=== PATIENT | male | born 1940 | race Caucasian/White ===

== ENCOUNTER 2023-06-14 15:15 | Inpatient (IN) ==
--- NOTE | 2023-06-14 15:43 | Emergency Department Note ---
Impression & Plan Non-ST elevation AL (NSTEMI), Chest pain ED Provider Note NAME: JONATHAN RAYA AGE: 82 SEX: M : 1940 ARRIVES VIA: Ambulance INFORMANT: Patient, ED PROVIDER(S): Reji Gutiérrez DO CHIEF COMPLAINT: Chest pain HPI: The patient is an 82-year-old male who presented to the emergency department for an evaluation of chest pain. The patient describes anterior chest pain that he describes as a pressure. It was nonradiating. It was not a ssociate with shortness of breath or nausea. The patient has a history of coronary artery disease. He has had multiple stents in the past but at this time is still refusing to have bypass surgery. The patient's last cardiac catheterization was in 2021. The patient called 911. The chest pain developed while he was shoveling and working in his barn. He states the pain is significantly improved at this time. ROS: See above HPI for pertinent positives & negatives. A total of 10 systems reviewed and were otherwise negative. PAST MEDICAL HISTORY: See Below PAST SURGICAL HISTORY: See Below FAMILY HISTORY: See Below SOCIAL HISTORY: See Below HOME MEDICATIONS: See Below ALLERGIES: See Below VITALS: See Below PHYSICAL EXAMINATION: GENERAL: Patient is awake alert in no acute distress patient is resting comfortably and showing no signs of anxiety EYES: The conjunctivae are clear. The pupils are round and reactive. EARS, NOSE, MOUTH AND THROAT: The nose is without any evidence of any deformity. NECK: The neck is nontender and supple. RESPIRATORY: Normal respiratory effort is noted there is no evidence of wheezing rhonchi or rales CARDIOVASCULAR: Regular rate and rhythm noted there no murmurs rubs or gallops normal S1 normal S2. GASTROINTESTINAL: The abdomen is soft. Abdomen is nontender. MUSCULOSKELETAL/EXTREMITIES: There is no evidence of gross deformity full range of motion is noted in the hips and shoulders. SKIN: There was a shingles rash noted on the right upper chest wall. NEUROLOGIC: Patient is awake alert and oriented x3 MEDICAL DECISION MAKING: The patient is an 82-year-old male who presented to the emergency department for an evaluation of chest discomfort. The patient has a history of coronary artery disease. He was referred for coronary artery bypass grafting but he has been very reluctant to have this procedure done. He started having chest pain today after exerting himself by shoveling. The patient arrived via ambulance. He was treated with aspirin. Upon arrival his symptoms were significantly improved. After an observation time in the emergency department he had no chest discomfort or pressure. I discussed the patient's laboratory and radiographic studies with him. I discussed the limitations of the emergency department work-up for chest pain with him. Ultimately he was found to have elevated troponin after serial troponin measurements. For this reason I discussed his condition with the on- call [facility]ist group. They have agreed to evaluate the patient in the emergency department for further management and disposition. The patient was treated with IV heparin. I also discussed this case with the [facility] manager restaurant. Triage Nursing notes reviewed. Prior medical records reviewed Vital Signs: reviewed and remarkable for no significant abnormalities Differential diagnosis: Cardiac ischemia, aortic dissection, pulmonary embolism, pneumothorax, pneumonia, pericarditis, myocarditis, esophageal rupture, GERD, cholecystitis, pancreatitis, musculoskeletal, as well as other pathologies. ER treatment provided: See below Diagnostics interpreted by me: ECG: EKG was obtained in the emergency department. My interpretation is normal sinus rhythm at 61 bpm. There is no ectopy. There is no acute ST segment abnormalities noted. This was compared to a tracing from January 02, 2023. No changes were noted Cardiac Monitoring: An order was placed for continuous cardiac monitoring. The monitor shows a rate of 60 bpm with sinus rhythm. Laboratory studies: As stated above and show below. Imaging studies: See below. Radiographic imaging was reviewed by myself Consultation(s): I discussed this case with Dr. Fortune who is on for [facility] cardiology. I discussed this case with Dr. Rivera who is on-call for the [facility]ist group ED COURSE: The patient was placed in observation status at 1529. The patient was placed into observation because of chest pain and he was placed in observation for serial troponin measurements. During the time in observation, the patient was frequently reassessed and received serial troponin measurements. On Final reassessment the patient was found to have an elevation in his troponin and the patient will be evaluated by the hospitalist for inpatient management at this time. A total observation time of 2 hours. Procedures: none Critical Care: I have personally spent greater than 45 minutes of critical care time in the direct management of this patient. This includes bedside care, interpretation of diagnostic studies, and testing, discussion with consultants, patient, and family members, and other required patient management activities. This 45 minutes is in excess of all separately billable procedures. 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 Beliefs That Will Affect Care: None Current Living Situation: Spouse Feels Safe at Home: Yes Assistive Devices: None Allergies Allergies Allergy/AdvReac Type Severity Reaction Status Date / Time No Known Allergies Allergy Verified 06/14/23 15:48 Home Meds Home Medications Medication Instructions Recorded Confirmed No Known Home Medications 02/05/22 06/14/23 Results & Data (ED) Vital Signs Vital Signs - 24 hr 06/14/23 15:32 06/14/23 15:32 06/14/23 15:32 Temperature 36.6 C Temperature Source Oral Pulse Rate 64 Pulse Rate [Apical] Respiratory Rate 18 16 Blood Pressure 153/70 H Blood Pressure [Left Arm] Blood Pressure Mean 97 Blood Pressure Mean [Left Arm] Pulse Oximetry 97 97 Oxygen Delivery Method Room Air Room Air Sepsis Recent Fever Within 48 Hours No Sepsis New/Unexplained Change in Mental Status N/A Sepsis Action Taken by Nursing No Action Required 06/14/23 15:32 06/14/23 15:33 06/14/23 17:14 Temperature Temperature Source Pulse Rate 65 Pulse Rate [Apical] 60 Respiratory Rate 16 Blood Pressure Blood Pressure [Left Arm] 140/72 Blood Pressure Mean Blood Pressure Mean [Left Arm] 94 Pulse Oximetry 96 96 Oxygen Delivery Method Room Air Sepsis Recent Fever Within 48 Hours Sepsis New/Unexplained Change in Mental Status Sepsis Action Taken by Nursing 06/14/23 19:30 06/14/23 19:00 Temperature Temperature Source Pulse Rate 60 Pulse Rate [Apical] 63 Respiratory Rate 18 Blood Pressure Blood Pressure [Left Arm] 162/86 H Blood Pressure Mean Blood Pressure Mean [Left Arm] 111 Pulse Oximetry 98 Oxygen Delivery Method Sepsis Recent Fever Within 48 Hours Sepsis New/Unexplained Change in Mental Status Sepsis Action Taken by Care Home Medications Current Medication List: was personally reviewed by me Laboratory Data Attestation: I reviewed the patient's lab results. 06/14/23 15:29 06/14/23 15:29 Lab Results 06/14/23 06/14/23 06/14/23 Range/Units 15: 15: 17:23 WBC 8.44 (4.8-10.8) K/ul RBC 4.86 (4.70-6.10) M/uL Hgb 14.5 (14.0-18.0) g/dl Hct 44.5 (42.0-52.0) % MCV 91.6 (80.0-100.0) fL MCH 29.8 (25.0-34.0) pg MCHC 32.6 (32.0-36.0) g/dL RDW Std Deviation 43.8 (36.4-46.3) fL RDW Coeff of [place] 12.9 (11.5-14.5) % Plt Count 157 (130-400) K/uL MPV 10.4 (9.4-12.4) fL Immature Gran % (Auto) 0.4 % Neut % (Auto) 77.3 % Lymph % (Auto) 13.9 % [place] % (Auto) 7.5 % Eos % (Auto) 0.7 % Baso % (Auto) 0.2 % Neut # (Auto) 6.53 H (1.40-6.50) K/uL Lymph # (Auto) 1.17 L (1.20-3.40) K/uL [place] # (Auto) 0.63 H (0.11-0.59) K/uL Eos # (Auto) 0.06 (0.00-0.50) K/uL Baso # (Auto) 0.02 (0.00-0.20) K/uL Immature Gran # (Auto) 0.03 (0.01-0.20) K/uL Sodium 139 (136-145) mmol/L Potassium 4.2 (3.5-5.1) mmol/L Chloride 105 (98-107) mmol/L Carbon Dioxide 30 (21-32) mmol/L Anion Gap 4 (3-11) BUN 29 H (6-23) mg/dl Creatinine 0.82 (0.6-1.4) mg/dl Est Cr Clr Drug Dosing 69.1 ml/min Est GFR ( Amer) 96.8 ml/min Est GFR (Non-Af Amer) 83.5 ml/min BUN/Creatinine Ratio 35.4 H (10-20) Glucose 121 H (70-99(Fasting)) mg/dl Calcium 9.3 (8.6-10.3) mg/dl Total Bilirubin 0.4 (0.2-1.0) mg/dl AST 23 (13-39) U/L ALT 19 (7-52) U/L Alkaline Phosphatase 66 (34-104) U/L Troponin I High Sens 20.3 H 153.5 H* D (0-20) pg/ml Total Protein 7.4 (6.0-8.3) gm/dl Albumin 4.1 (3.4-5.0) gm/dl Globulin 3.3 (2.5-4.0) gm/dl Albumin/Globulin Ratio 1.2 (0.9-2) Lipase 10 L (11-82) U/L 06/14/ Range/Units 19:07 WBC (4.8-10.8) K/ul RBC (4.70-6.10) M/uL Hgb (14.0-18.0) g/dl Hct (42.0-52.0) % MCV (80.0-100.0) fL MCH (25.0-34.0) pg MCHC (32.0-36.0) g/dL RDW Std Deviation (36.4-46.3) fL RDW Coeff of [place] (11.5-14.5) % Plt Count (130-400) K/uL MPV (9.4-12.4) fL Immature Gran % (Auto) % Neut % (Auto) % Lymph % (Auto) % [place] % (Auto) % Eos % (Auto) % Baso % (Auto) % Neut # (Auto) (1.40-6.50) K/uL Lymph # (Auto) (1.20-3.40) K/uL [place] # (Auto) (0.11-0.59) K/uL Eos # (Auto) (0.00-0.50) K/uL Baso # (Auto) (0.00-0.20) K/uL Immature Gran # (Auto) (0.01-0.20) K/uL Sodium (136-145) mmol/L Potassium (3.5-5.1) mmol/L Chloride (98-107) mmol/L Carbon Dioxide (21-32) mmol/L Anion Gap (3-11) BUN (6-23) mg/dl Creatinine (0.6-1.4) mg/dl Est Cr Clr Drug Dosing ml/min Est GFR ( Amer) ml/min Est GFR (Non-Af Amer) ml/min BUN/Creatinine Ratio (10-20) Glucose (70-99(Fasting)) mg/dl Calcium (8.6-10.3) mg/dl Total Bilirubin (0.2-1.0) mg/dl AST (13-39) U/L ALT (7-52) U/L Alkaline Phosphatase (34-104) U/L Troponin I High Sens 506.7 H* D (0-20) pg/ml Total Protein (6.0-8.3) gm/dl Albumin (3.4-5.0) gm/dl Globulin (2.5-4.0) gm/dl Albumin/Globulin Ratio (0.9-2) Lipase (11-82) U/L Administered Medications Heparin Sodium/Dextrose (Heparin Sodium/Dextrose) 25,000 units in 500 mls @ 24 mls/hr IV .[id number] [facility]; Protocol Stop: 07/14/23 18:44 Last Admin: 06/14/23 18:32 Dose: 1,200 units/hr, 24 mls/hr Documented By: JI Co-signed By: BMK Discontinued Medications Heparin Sodium/Dextrose (Heparin Iv Adult Wt-Based Standard *No* Bolus Protocol) 1 each IV ONE STA; Protocol Stop: 06/14/23 18:21 Last Admin: 06/14/23 18:48 Dose: Not Given Documented By: JI Imaging Data Attestation: I personally reviewed and interpreted this imaging study as follows: My Impression: 1 view chest x-ray was obtained in the emergency department. My interpretation was no free air or definite infiltrate, final report below. Radiologist's Impression: Chest X-Ray 06/14/23 15:28 XR chest 1V portable HISTORY: 82 years-old Male Chest pain, nonspecific acute chest pain COMPARISON: 01/02/2023 TECHNIQUE: AP view of the chest FINDINGS: Cardiomediastinal and hilar silhouettes are within normal limits. No pneumothorax, pleural effusion or airspace consolidation. Bones appear grossly intact. Chronic left clavicular fracture deformity. IMPRESSION: No acute process. ACT 112: Negative or not required by law. The above report was generated using voice recognition software. It may contain grammatical, syntax or spelling errors. Electronically signed by: Per Causey M.D. 06/14/2023 3:55 PM Discharge Plan Visit Data Chief Complaint: Chest Pain Stated Complaint: CHEST PAIN ED Provider: Reji Gutiérrez Discharge Problem: Non-ST elevation AL (NSTEMI), Chest pain Patient Disposition: Being Evaluated by Hospitalist Forms Stand Alone Forms: My [email or web address] Prescriptions Prescriptions: No Action No Known Home Medications Referrals Referrals: Ayaka Bartlett CRNP [Primary Care Provider] -
--- NOTE | 2023-06-14 15:56 | XRay Report ---
XR chest 1V portable HISTORY: 82 years-old Male Chest pain, nonspecific acute chest pain COMPARISON: 01/02/2023 TECHNIQUE: AP view of the chest FINDINGS: Cardiomediastinal and hilar silhouettes are within normal limits. No pneumothorax, pleural effusion o r airspace consolidation. Bones appear grossly intact. Chronic left clavicular fracture deformity. IMPRESSION: No acute process. ACT 112: Negative or not required by law. The above report was generated using voice recognition software. It may contain grammatical, syntax o r spelling errors. Electronically signed by: Per Causey M.D. 06/14/2023 3:55 PM
[2023-06-14 16:05] LABS: Basophils # (auto) 0.02 K/uL (0.00-0.20); Basophils % (auto) 0.2 %; Eosinophils # (auto) 0.06 K/uL (0.00-0.50); Eosinophils % (auto) 0.7 %; Hematocrit (blood only) 44.5 % (42.0-52.0); Hemoglobin 14.5 g/dl (14.0-18.0); Immature Granulocytes # (auto) 0.03 K/uL (0.01-0.20); Immature Granulocytes % (auto) 0.4 %; Lymphocytes # (auto) 1.17 K/uL (1.20-3.40); Lymphocytes % (auto) 13.9 %; Mean Corpuscular Hemoglobin 29.8 pg (25.0-34.0); Mean Corpuscular Hgb Conc 32.6 g/dL (32.0-36.0); Mean Corpuscular Volume 91.6 fL (80.0-100.0); Mean Platelet Volume 10.4 fL (9.4-12.4); Monocytes # (auto) 0.63 K/uL (0.11-0.59); Monocytes % (auto) 7.5 %; Neutrophils # (auto) 6.53 K/uL (1.40-6.50); Neutrophils % (auto) 77.3 %; Platelet Count 157 K/uL (130-400); RDW Coefficient of Variation 12.9 % (11.5-14.5); RDW Standard Deviation 43.8 fL (36.4-46.3); Red Blood Count 4.86 M/uL (4.70-6.10); White Blood Count 8.44 K/ul (4.8-10.8)
[2023-06-14 16:11] LABS: Albumin Globulin Ratio 1.2 (0.9-2); Albumin Level 4.1 gm/dl (3.4-5.0); BUN Creatinine Ratio 35.4 (10-20); Bilirubin,Total 0.4 mg/dl (0.2-1.0); Calcium 9.3 mg/dl (8.6-10.3); Creatinine Clr Calc Pharmacy 69.1 ml/min; Est GFR (African American) 96.8 ml/min; Est GFR (Non-African American) 83.5 ml/min; Globulin 3.3 gm/dl (2.5-4.0); Potassium 4.2 mmol/L (3.5-5.1); Total Protein 7.4 gm/dl (6.0-8.3)
[2023-06-14 16:17] LABS: Troponin I High Sensitivity 20.3 pg/ml (0-20)
[2023-06-14] MEDS ORDERED: Heparin IV Adult Wt-Based Standard *NO* Bolus Protocol IV STA (18:20)
--- NOTE | 2023-06-14 18:31 | History & Physical Report ---
Date of Service June 14, 2023 Assessment & Plan (1) Chest pain: Plan: Acute onset severe CP while shoveling in his barn on 06/14 Hx of CAD w/ stent placement In the past, patient declined CABG / heart surgery This was discussed with the patient in the ED, and patient was encouraged to consider options Also encouraged to consider prescription medications, as patient is not currently taking anything Troponin positive 20.3 --> 153.5 Trend troponin q6h x 3 Heparin bolus given in the ED Echo ordered for tomorrow morning Appreciate cardiology consult Continuous telemetry monitoring Nitro 0.4 SL as needed for chest pain (max 3 doses over 15min) If CP recurs, consider Nitro-Bid 2% q6h AM CBC, BMP (2) Hypertension: Plan: BP 153/70 on arrival Patient is not on any hypertensive medications at home (3) Coronary artery disease: Plan: IMI RCA TJ, staged LCx TJ, April [address] Schmid in January 2022 (4) Shingles: Plan: First noticed by patient 2 weeks ago Patient has tried some natural remedies Clinically, shingles are beginning to crust over; will hold intervention at this time Maintain standard contact precautions Plan Disposition: Admit to PCU telemetry DNR/DNI AHA Diet VTE PPx: Heparin History of Present Illness Chief Complaint: Chest pain Primary Care Provider: DANAY Chavez Scott is an 89-year-old [facility] gentleman with PMH of HTN, aortic stenosis, HLD, and CAD. He presented for 8/10 chest pain that developed while shoveling in his barn this morning 06/14. Hx of cardiac cath and stent placement. He reports the present episode felt more intense than past episodes. In the past, patient has declined CABG/surgical intervention. Dr. Singer discussed this with the patient and encouraged him to consider his different treatment options, whether that be medical, surgical, or choosing to abstain. The patient has not taken prescription medications over the past 2 years. Was previously following with Dr. Bello after stent placement. He has not been taking aspirin, plavix, metoprolol, antihypertensives, or cholesterol medications. Patient denies chest pain while in the ED. Patient further denies chest pain at rest in the last 6 months, but endorses "chest pressure on exertion" while walking up hills. He is also had shingles x2 weeks along the right lateral rib cage, underneath the right breast, and along the right mid-back. Patient's recently past away in March. Vitals stable on admission. ED Course: ASA, heparin ROS: Patient endorses intermittent chest pain that comes on with exertion Patient denies fever, chills, CP (at present), SOB, abdominal pain, or numbness/tingling/pain down the legs. Allergies Allergy/AdvReac Type Severity Reaction Status Date / Time No Known Allergies Allergy Verified 06/14/23 15:48 Home Medications Medication Instructions Recorded Confirmed Type No Known Home Medications 02/05/22 06/14/23 History Past Med/Surg History Medical History Past myocardial infarction Surgical History History of intravascular stent placement History of mandibular surgery History of tonsillectomy Family History Sister Breast cancer Cancer Mother Diabetes Denies family history of Ovarian cancer Prostate cancer Myocardial infarction Colorectal cancer Social History Smoking Status: Never smoker Hx Alcohol Use: No Hx Substance Use: No Preferred Language: Lithuanian Communication Ability: Effective Aws Developer Required: No Beliefs That Will Affect Care: None Current Living Situation: Spouse Feels Safe at Home: Yes Assistive Devices: None Review of Systems Review of Systems: See HPI above. Physical Exam Physical Exam: General: patient appears in no acute distress; appears stated age; well- nourished; cooperative HEENT: normocephalic, atraumatic; no scleral icterus; PERRLA w/ EOMs intact; moist mucus membrane; trachea midline; vision and hearing grossly intact Skin: warm, dry without signs of tenting; no cyanosis; red/brown crusting lesions that follow dermatome along the right upper back, and right lower breast Cardiac: Regular rhythm; 2/6 systolic murmur auscultated at the second [facility] MCL Pulm: no acute respiratory distress; symmetrical chest expansion; clear breath sounds across all lung mariscal without adventitious sounds Abdominal: Soft, nontender to palpation; BS present; no ascites; inguinal hernia MSK: no tics or fasciculations; no edema noted in the LEs b/l; pulses intact and symmetrical at radial, DP, and PT Neuro: A&Ox3; no tremors; no focal defects Results & Data Results & Data Vital Signs (Past 12 Hours) Vital Signs Temp Pulse Pulse Resp BP BP Pulse Ox 06/14/23 17:14 60 16 140/72 96 06/14/23 15:33 65 06/14/23 15:32 96 06/14/23 15:32 16 97 06/14/23 15:32 06/14/23 15:32 36.6 C 64 18 153/70 H 97 O2 Del Method 06/14/23 17:14 Room Air 06/14/23 15:33 06/14/23 15:32 06/14/23 15:32 06/14/23 15:32 Room Air 06/14/23 15:32 Room Air Laboratory Results Abnormal lab results 06/14/23 06/14/23 06/14/23 Range/Units 15:29 15:29 17:23 Neut # (Auto) 6.53 H (1.40-6.50) K/uL Lymph # (Auto) 1.17 L (1.20-3.40) K/uL [place] # (Auto) 0.63 H (0.11-0.59) K/uL BUN 29 H (6-23) mg/dl BUN/Creatinine Ratio 35.4 H (10-20) Glucose 121 H (70-99(Fasting)) mg/dl Troponin I High Sens 20.3 H 153.5 H* D (0-20) pg/ml Lipase 10 L (11-82) U/L Diagnostic Findings Chest X-Ray 06/14/23 15:28 XR chest 1V portable HISTORY: 82 years-old Male Chest pain, nonspecific acute chest pain COMPARISON: 01/02/2023 TECHNIQUE: AP view of the chest FINDINGS: Cardiomediastinal and hilar silhouettes are within normal limits. No pneumothorax, pleural effusion or airspace consolidation. Bones appear grossly intact. Chronic left clavicular fracture deformity. IMPRESSION: No acute process. ACT 112: Negative or not required by law. The above report was generated using voice recognition software. It may contain grammatical, syntax or spelling errors. Electronically signed by: Per Causey M.D. 06/14/2023 3:55 PM Code Status & VTE Plan Code Status DNR/DNI VTE Prophylaxis Plan VTE Prophylaxis will be ordered: Yes Supervising Physician Co-Signing Physician Notes Scott Valiente is an 82-year-old male michelle flores with a past medical history of aortic stenosis, hypertension, hyperlipidemia, CAD w/ hx of PCI, who presents with exertional ches tpain. Follows with [facility] for coronary artery disease. He has a history of PCI to the RCA, LCx. Patient was seen 03/2023 by cardiology and was noted to have exertional angina and had a nondiagnostic stress echo. He underwent a cardiac catheterization 01/2022 and has 60 to 70% LM, 80% right PLB, 90% left PLB, 60% mid RCA disease and patent stents. Patient was recommended for CABG, however opted for medical management and declined this. Last EF 55-60%. He reports today for evaluation of chest pain. Chest pain developed while he was shoveling in his barn, rapid development of substernal chest pain. improved on rest while in the ER. Troponin up trended from 20 --> 153, EKG shows normal sinus rhythm without acute territorial ST segment changes. QTc 434 PG Care Time/CCT Total # of Minutes Spent Total Time Spent with Patient: Total time spent is greater than 50% in coordination of care (as documented) at patient's floor/unit and/or counseling patient: Coding [place] [address] INT INP/OBS CARE 2/55MIN Patient Type Established History Comprehensive Exam Comprehensive Medical Decision Making Moderate Complexity Diagnoses Chest pain R07.9 Hypertension I10 Coronary artery disease I25.10 Shingles B02.9
[2023-06-14] MEDS: HEPARIN SODIUM/DEXTROSE 25,000 UNITS/500 ML BAG IV SCH (18:32)
[2023-06-14] MEDS ORDERED: ACETAMINOPHEN 325 MG TAB PO PRN (21:58)
[2023-06-14] MEDS ORDERED: NITROGLYCERIN SL 0.4 MG/TAB TAB SL PRN (21:58)
[2023-06-14] MEDS: METOPROLOL TARTRATE 25 MG TAB PO SCH (22:41)
[2023-06-15 01:05] LABS: Partial Thromboplastin Ratio 2.1
[2023-06-15 06:37] LABS: Basophils # (auto) 0.02 K/uL (0.00-0.20); Basophils % (auto) 0.4 %; Eosinophils # (auto) 0.12 K/uL (0.00-0.50); Eosinophils % (auto) 2.4 %; Hemoglobin 13.6 g/dl (14.0-18.0); Immature Granulocytes # (auto) 0.01 K/uL (0.01-0.20); Immature Granulocytes % (auto) 0.2 %; Lymphocytes # (auto) 2.01 K/uL (1.20-3.40); Mean Corpuscular Hemoglobin 29.6 pg (25.0-34.0); Mean Corpuscular Hgb Conc 33.2 g/dL (32.0-36.0); Mean Corpuscular Volume 89.3 fL (80.0-100.0); Mean Platelet Volume 10.4 fL (9.4-12.4); Monocytes # (auto) 0.55 K/uL (0.11-0.59); Neutrophils # (auto) 2.31 K/uL (1.40-6.50); Platelet Count 145 K/uL (130-400); RDW Coefficient of Variation 12.9 % (11.5-14.5); RDW Standard Deviation 42.1 fL (36.4-46.3); Red Blood Count 4.59 M/uL (4.70-6.10); White Blood Count 5.02 K/ul (4.8-10.8)
--- NOTE | 2023-06-15 07:01 | Electrocardiogram Report ---
Test Reason : Blood Pressure : / mmHG Vent. Rate : 061 BPM Atrial Rate : 061 BPM P-R Int : 148 ms QRS Dur : 092 ms QT Int : 432 ms P-R-T Axes : 075 026 019 degrees QTc Int : 434 ms Normal sinus rhythm Possible Left atrial enlargement Inferior infarct (cited on or before 02-JAN-2023) Abnormal ECG When compared with ECG of 02-JAN-2023 18:20, No significant change was found Confirmed by Jarett Fortune ([id number]) on 06/15/2023 7:00:40 AM Referred By: REFERRED SELF Confirmed By:Carson Fortune
[2023-06-15 07:04] LABS: BUN Creatinine Ratio 33.3 (10-20); Calcium 8.5 mg/dl (8.6-10.3); Chol HDL Ratio 5.1 (0-5); Creatinine Clr Calc Pharmacy 74.5 ml/min; Est GFR (African American) 102.1 ml/min; Est GFR (Non-African American) 88.1 ml/min; Potassium 4.1 mmol/L (3.5-5.1)
[2023-06-15 07:21] LABS: Troponin I High Sensitivity 373.1 pg/ml (0-20)
[2023-06-15 08:03] LABS: Partial Thromboplastin Ratio 2.9
--- NOTE | 2023-06-15 08:05 | XCELERA ---
[id number]
[2023-06-15 08:07] LABS: Partial Thromboplastin Time 82.7 Seconds (21.0-31.0)
--- NOTE | 2023-06-15 08:13 | Hospitalist Progress Note ---
Date of Service June 15, 2023 Assessment & Plan (1) Chest pain: (2) Hypertension: (3) Coronary artery disease: (4) Shingles: Plan NSTEMI Acute onset severe CP while shoveling in his barn on 06/14 Hx of CAD w/ 2 stent placement (left main) In the past, patient declined CABG / heart surgery Troponin positive: 153.5 -->506.7-->731.5-->373.1-->244.9 Echo ordered: EF 50-55%, Aortic valve sclerosis mild, Mild concentric left ventricular hypertrophy Nitro 0.4 SL as needed for chest pain (max 3 doses over 15min) Appreciated cardiology consult: Recommended repeat coronary angiography and Percutaneous intervention Patient prefer medical intervention for now Plavix, Heparin for 48 hrs, PTT ordered Carvedilol 3.125 mg BID Lipitor 40 mg Hypertension: BP 153/70 on arrival Patient is not on any hypertensive medications at home -Low dose beta blockers. Monitor bradycardia Coronary artery disease: Sever left main coronary disease Cardiology recommended surgical revascularization, not interested Medical therapy for now Shingles: First noticed by patient 2 weeks ago Patient has tried some natural remedies Clinically, shingles are beginning to crust over; will hold intervention at this time Maintain standard contact precautions Plan Disposition: Admit to PCU telemetry DNR/DNI AHA Diet VTE PPx: Heparin Admission and Anticipated Discharge Date Admission Date: June 14, 2023 Supervising Physician Co-Signing Physician Notes I personally examined the patient and verified all guaman points of history and exam, discussed case, and agree with decision making with Dr Silverio Martinez no chest pain feels good now. EXTENSIVE discussion with pt and family on CAD, risk/benefit of interventional/surgical approach vs not, risk/benefit in a separate phase of discussion on med management, discussed nutriceuticals, discussed diet/exercise vitals ntoed nad heent nc at mmm breathing unlabored no accessory muscles good effort skin no rashes no pallor or icterus CAD/NSTEMI - med management. for now as far as ongoing management he's amenable to appropriate med management, considering but leaning against any surgical intervention, amenable to lifestyle modification as well hopefully home tomorrow, otherwise as above Subjective 89 y/o old with PMH of HTN, aortic stenosis, HLD, and CAD.He presented for 8/10 chest pain that developed while performing some work on in his barn this morning 06/14. Hx of cardiac cath and stent placement. He reports the present episode felt more intense than past episodes. In the past, patient has declined CABG/surgical intervention.The patient has not taken prescription medications over the past 2 years. Was previously following with Dr. Bello after stent placement. He has not been taking aspirin, plavix, metoprolol, antihypertensives, or cholesterol medications. 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 Evaluated today found alert in NAD, denied any chest pain at the moment. Feeling better. Denied any palpitations, dizziness, lightheadedness, no orthopnea. He complain of discomfort/pain on his chest and back on right sided that he attributed to his recent infection with shingles Review of Systems Review of Systems: All systems reviewed & are unremarkable except as noted in HPI & below Physical Exam Constitutional: WD/WN, vitals as above Respiratory: normal respiratory effort, lungs clear to auscultation Cardiovascular: RRR, no murmur, no edema Gastrointestinal (Abdomen): normal bowel sounds, soft, nontender, no hepatosplenomegaly Skin: warm, dry without signs of tenting; no cyanosis; red/brown crusting lesions that follow dermatome along the right upper back, and right lower breast Psychiatric: A+Ox3, euthymic affect Results & Data Results & Data Vital Signs (Past 12 Hours) Vital Signs Temp Pulse Pulse Resp BP Pulse Ox Pulse Ox 06/15/23 07:31 36.5 C 54 L 19 152/78 H 96 06/15/23 05:37 54 L 18 160/84 H 97 06/15/23 03:04 36.7 C 59 L 20 151/78 H 98 06/14/23 21:58 96 06/14/23 21:58 60 06/14/23 21:37 56 L 06/14/23 23:00 55 L 17 169/89 H 96 06/14/23 21:38 36.4 C L 58 L 18 152/80 H 95 06/14/23 21:00 60 16 160/79 H 96 O2 Del Method O2 Del Method 06/15/23 07:31 Room Air 06/15/23 05:37 Room Air 06/15/23 03:04 Room Air 06/14/23 21:58 Room Air 06/14/23 21:58 06/14/23 21:37 06/14/23 23:00 Room Air 06/14/23 21:38 Room Air 06/14/23 21:00 Room Air
[2023-06-15] MEDS: ATORVASTATIN 40 MG TAB PO SCH (09:20)
[2023-06-15] MEDS: ASPIRIN 81 MG ECTAB PO SCH (09:20)
[2023-06-15] MEDS: METOPROLOL TARTRATE 25 MG TAB PO SCH (09:20)
--- NOTE | 2023-06-15 09:53 | Cardiology Consultation ---
Date of Consultation June 15, 2023 Assessment & Plan (1) Non-ST elevation CA (NSTEMI): (2) Coronary artery disease: (3) Valvular heart disease: Plan 1. NSTEMI: He had elevation in his biomarkers associated with significant activity yesterday. Unclear if this represents an acute coronary syndrome or simply demand ischemia in the setting of known severe left main disease. However, we will treat as an ACS currently. Will continue with heparin infusion for 48 hours, try to administer some beta-blockade in the setting of his bradycardia, consider nitrates with his elevated blood pressure and add Plavix to his anti-platelet regimen. I had an extensive discussion with the patient and his family today regarding his options for treatment. My recommendation was repeat coronary angiography to assess patency of the right coronary system. He is known to have severe left- sided disease and this is not amenable to percutaneous intervention. We talked about the benefits of surgical revascularization and the risks of a noninvasive strategy for treatment of an NSTEMI. At this point he wishes to proceed with medical therapy. Will add the agents noted above. Will ambulate tomorrow. I will reassess his symptoms and readdress my concerns with a noninvasive strategy at that time. 2. Coronary artery disease: Known to have severe left main coronary disease. Patent stents at the time of his last evaluation in 2021. He was advised at that time to consider surgical revascularization but was not interested. He actually stopped taking his oral medications as well and is taking some natural path and remedies at this time. He was amenable to trying medical therapy again. Will reinitiate anti-lipid therapy and control blood pressure as well. 3. Aortic stenosis: Reported to have mild aortic stenosis previously. Current examination did not demonstrate a significant gradient noted the dimensionless index was somewhat reduced. Not think this represents a clinical concern or any role in his symptoms. 4. Hypertension: The patient does have elevated blood pressure. Will try some low-dose beta-blockade. If this is not well tolerated or does not reduce his blood pressure would add a nitrate for its antianginal benefit. History of Present Illness Reason for Consultation: NSTEMI Attending Physician: Ed Allen DO History of Present Illness The patient is an 82-year-old gentleman with a history of coronary artery disease who had previously undergone percutaneous intervention to the right coronary artery in the setting of an inferior wall myocardial infarction in 2018. More recent evaluation reported significant left main disease and patent right coronary stents. The patient was performing some work in his barn yesterday. Specifically this involve cleaning some horse Stalls and washing a horse. He experienced the onset chest discomfort similar to that that he has experienced previously. This episode was more intense than usual and did not resolve immediately with rest. An ambulance was summoned. He was given aspirin in route and brought to the emergency room where his symptoms had essentially resolved. Cardiac biomarkers were abnormal and he was started on heparin infusion. He was admitted for observation. The patient states that he does have some tightness in the chest when he does certain types of exertion. Reportedly this is fairly rare. He has an element of dyspnea with extremes of activity as well. With routine activity he generally does not have symptoms of this nature. Denies dizziness or lightheadedness. He did suffer a mechanical fall in the past resulting in a minor concussion. No history of syncope. No sense of palpitation. No lower extremity edema. No orthopnea or paroxysmal nocturnal dyspnea. At the time of my interview the patient was feeling well. He has not had recurrence of yesterday's chest pain but does have some discomfort along the right chest and back. He attributes this to recent infection with shingles. Allergies Allergy/AdvReac Type Severity Reaction Status Date / Time No Known Allergies Allergy Verified 06/14/23 15:48 Home Medications Medication Instructions Recorded Confirmed Type No Known Home Medications 02/05/22 06/14/23 History Patient History Medical History Past myocardial infarction Surgical History History of intravascular stent placement History of mandibular surgery History of tonsillectomy Family History Sister Breast cancer Cancer Mother Diabetes Denies family history of Ovarian cancer Prostate cancer Myocardial infarction Colorectal cancer Social History Smoking Status: Never smoker Second Hand Exposure: No; Do You Dip or Chew Tobacco: No; Tobacco Cessation Education Requested by Patient: No Hx Alcohol Use: No Hx Substance Use: No Preferred Language: Liberian Communication Ability: Effective Caterer'S Aide Required: No Beliefs That Will Affect Care: None Current Living Situation: Alone Current Living Situation Comment: pts recently passed Other Information That Helps Us Care for You: No Feels Safe at Home: Yes Safety Concerns: Feels Safe At This Time Assistive Devices: None Review of Systems Review of Systems: Per HPI. Recent shingles infection involving his back, right-sided. Physical Exam Physical Exam: The patient is alert and oriented. Mood and affect appeared normal. He answered all questions appropriately. HEENT: Pupils are equal and reactive to light and accommodation. Extraocular movements are intact. The sclerae are anicteric. Neuro: Cranial nerves intact Lungs: Clear to auscultation bilaterally. He has good air movement without use of accessory muscles. No rales wheezes or rhonchi. Cardiac: Heart demonstrates a regular rate and rhythm. Normal S1 and S2. No murmurs on examination. Pulses: The patient has palpable radial pulses bilaterally that are equal in intensity Extremities: There was no evidence of hypoperfusion. There is no cyanosis or clubbing. There is no edema. . Results & Data Vital Signs (Past 12 Hours) Vital Signs Temp Pulse Pulse Resp BP Pulse Ox Pulse Ox 06/15/23 09:10 62 06/15/23 07:31 36.5 C 54 L 19 152/78 H 96 06/15/23 05:37 54 L 18 160/84 H 97 06/15/23 03:04 36.7 C 59 L 20 151/78 H 98 06/14/23 21:58 96 06/14/23 21:58 60 06/14/23 23:00 55 L 17 169/89 H 96 O2 Del Method O2 Del Method 06/15/23 09:10 06/15/23 07:31 Room Air 06/15/23 05:37 Room Air 06/15/23 03:04 Room Air 06/14/23 21:58 Room Air 06/14/23 21:58 06/14/23 23:00 Room Air Laboratory Results Abnormal Lab Results 06/14/23 06/14/23 06/14/23 15:29 15:29 17:23 WBC 8.44 RBC 4.86 Hgb 14.5 Hct 44.5 MCV 91.6 MCH 29.8 MCHC 32.6 RDW Std Deviation 43.8 RDW Coeff of [place] 12.9 Plt Count 157 MPV 10.4 Immature Gran % (Auto) 0.4 Neut % (Auto) 77.3 Lymph % (Auto) 13.9 [place] % (Auto) 7.5 Eos % (Auto) 0.7 Baso % (Auto) 0.2 Neut # (Auto) 6.53 H Lymph # (Auto) 1.[address] [place] # (Auto) 0.63 H Eos # (Auto) 0.06 Baso # (Auto) 0.02 Immature Gran # (Auto) 0.03 APTT PTT Ratio Sodium 139 Potassium 4.2 Chloride 105 Carbon Dioxide 30 Anion Gap 4 BUN 29 H Creatinine 0.82 Est Cr Clr Drug Dosing 69.1 Est GFR ( Amer) 96.8 Est GFR (Non-Af Amer) 83.5 BUN/Creatinine Ratio 35.4 H Glucose 121 H Calcium 9.3 Total Bilirubin 0.4 AST 23 ALT 19 Alkaline Phosphatase 66 Troponin I High Sens 20.3 H 153.5 H* D Total Protein 7.4 Albumin 4.1 Globulin 3.3 Albumin/Globulin Ratio 1.2 Triglycerides Cholesterol LDL Cholesterol, Calc VLDL Cholesterol, Calc HDL Cholesterol Cholesterol/HDL Ratio Lipase 10 L 06/14/23 06/15/23 06/15/23 19:07 00:32 00:32 WBC RBC Hgb Hct MCV MCH MCHC RDW Std Deviation RDW Coeff of [place] Plt Count MPV Immature Gran % (Auto) Neut % (Auto) Lymph % (Auto) [place] % (Auto) Eos % (Auto) Baso % (Auto) Neut # (Auto) Lymph # (Auto) [place] # (Auto) Eos # (Auto) Baso # (Auto) Immature Gran # (Auto) APTT 59.0 H* PTT Ratio 2.1 Sodium Potassium Chloride Carbon Dioxide Anion Gap BUN Creatinine Est Cr Clr Drug Dosing Est GFR ( Amer) Est GFR (Non-Af Amer) BUN/Creatinine Ratio Glucose Calcium Total Bilirubin AST ALT Alkaline Phosphatase Troponin I High Sens 506.7 H* D 731.5 H* D Total Protein Albumin Globulin Albumin/Globulin Ratio Triglycerides Cholesterol LDL Cholesterol, Calc VLDL Cholesterol, Calc HDL Cholesterol Cholesterol/HDL Ratio Lipase 06/15/23 06/15/23 06/15/23 06:16 06:16 06:16 WBC 5.02 RBC 4.59 L Hgb 13.6 L Hct 41.0 L MCV 89.3 MCH 29.6 MCHC 33.2 RDW Std Deviation 42.1 RDW Coeff of [place] 12.9 Plt Count 145 MPV 10.4 Immature Gran % (Auto) 0.2 Neut % (Auto) 46.0 Lymph % (Auto) 40.0 [place] % (Auto) 11.0 Eos % (Auto) 2.4 Baso % (Auto) 0.4 Neut # (Auto) 2.31 Lymph # (Auto) 2.01 [place] # (Auto) 0.55 Eos # (Auto) 0.12 Baso # (Auto) 0.02 Immature Gran # (Auto) 0.01 APTT 82.7 H* PTT Ratio 2.9 Sodium 140 Potassium 4.1 Chloride 108 H Carbon Dioxide 28 Anion Gap 4 BUN 24 H Creatinine 0.72 Est Cr Clr Drug Dosing 74.5 Est GFR ( Amer) 102.1 Est GFR (Non-Af Amer) 88.1 BUN/Creatinine Ratio 33.3 H Glucose 98 Calcium 8.5 L Total Bilirubin AST ALT Alkaline Phosphatase Troponin I High Sens 373.1 H* D Total Protein Albumin Globulin Albumin/Globulin Ratio Triglycerides 53 Cholesterol 185 LDL Cholesterol, Calc 138 VLDL Cholesterol, Calc 11 HDL Cholesterol 36 Cholesterol/HDL Ratio 5.1 H Lipase Diagnostic Findings Cardiac catheterization 01/25/2022: Multivessel coronary disease including 67% proximal left main, 40-50% distal left anterior descending, 90% proximal stenosis of a left-sided posterolateral branch, 50-60% mid RCA disease with 80% proximal stenosis of a small right posterolateral branch. Patent stents noted in the mid circumflex and proximal right coronary artery. 06/15/2023: Normal LV systolic function and wall motion. Ejection fraction 50- 55%. Mild LVH. Aortic valve sclerosis without significant stenosis. Mild to moderate mitral regurgitation. Obtained 06/06/2023: No acute cardiopulmonary process PG Care Time/CCT Total # of Minutes Spent Total Time Spent with Patient: Total time spent is greater than 50% in coordination of care (as documented) at patient's floor/unit and/or counseling patient: Coding Level of Care Code 79492 INT INP/OBS CARE 3/75MIN Diagnoses Non-ST elevation CA (NSTEMI) I21.4 Coronary artery disease I25.10 Valvular heart disease I38
[2023-06-15] MEDS ORDERED: CLOPIDOGREL BISULFATE 300 MG TAB PO STA (09:57)
[2023-06-15] MEDS: carvediloL 3.125 MG TAB PO SCH ×2 (11:51→17:58)
--- NOTE | 2023-06-15 12:42 | Electrocardiogram Report ---
Test Reason : Blood Pressure : / mmHG Vent. Rate : 057 BPM Atrial Rate : 057 BPM P-R Int : 146 ms QRS Dur : 086 ms QT Int : 464 ms P-R-T Axes : 039 039 037 degrees QTc Int : 451 ms Sinus bradycardia with occasional Premature ventricular complexes Abnormal ECG When compared with ECG of 14-JUN-2023 15:23, Premature ventricular complexes are now Present Criteria for Inferior infarct are no longer Present Confirmed by Jarett Fortune ([id number]) on 06/15/2023 12:42:25 PM Referred By: REFERRED SELF Confirmed By:Carson Fortune
[2023-06-15 15:35] LABS: Partial Thromboplastin Ratio 2.6
[2023-06-15 15:39] LABS: Partial Thromboplastin Time 73.5 Seconds (21.0-31.0)
[2023-06-15] MEDS: HEPARIN SODIUM/DEXTROSE 25,000 UNITS/500 ML BAG IV SCH (15:56)
--- NOTE | 2023-06-15 20:34 | Billing Data ---
Date of Service June 15, 2023 Coding Level of Care Code 00465 SUB INP/OBS CARE MIN
[2023-06-16 00:02] LABS: Partial Thromboplastin Ratio 2.7
[2023-06-16 00:18] LABS: Partial Thromboplastin Time 75.5 Seconds (21.0-31.0)
[2023-06-16 07:06] LABS: Basophils # (auto) 0.02 K/uL (0.00-0.20); Basophils % (auto) 0.4 %; Eosinophils # (auto) 0.14 K/uL (0.00-0.50); Eosinophils % (auto) 2.8 %; Hematocrit (blood only) 43.4 % (42.0-52.0); Hemoglobin 14.1 g/dl (14.0-18.0); Immature Granulocytes # (auto) 0.01 K/uL (0.01-0.20); Immature Granulocytes % (auto) 0.2 %; Lymphocytes # (auto) 1.83 K/uL (1.20-3.40); Mean Corpuscular Hemoglobin 29.5 pg (25.0-34.0); Mean Corpuscular Hgb Conc 32.5 g/dL (32.0-36.0); Mean Corpuscular Volume 90.8 fL (80.0-100.0); Mean Platelet Volume 10.1 fL (9.4-12.4); Monocytes # (auto) 0.64 K/uL (0.11-0.59); Monocytes % (auto) 12.9 %; Neutrophils # (auto) 2.31 K/uL (1.40-6.50); Neutrophils % (auto) 46.7 %; Platelet Count 149 K/uL (130-400); RDW Coefficient of Variation 12.9 % (11.5-14.5); RDW Standard Deviation 42.7 fL (36.4-46.3); Red Blood Count 4.78 M/uL (4.70-6.10); White Blood Count 4.95 K/ul (4.8-10.8)
[2023-06-16 07:26] LABS: BUN Creatinine Ratio 27.9 (10-20); Calcium 8.6 mg/dl (8.6-10.3); Creatinine Clr Calc Pharmacy 78.9 ml/min; Est GFR (African American) 104.5 ml/min; Est GFR (Non-African American) 90.2 ml/min
--- NOTE | 2023-06-16 07:42 | Hospitalist Progress Note ---
Date of Service June 16, 2023 Assessment & Plan (1) Chest pain: (2) Hypertension: (3) Coronary artery disease: (4) Shingles: Plan NSTEMI Acute onset severe CP while shoveling in his barn on 06/14 Hx of CAD w/ 2 stent placement (left main) In the past, patient declined CABG / heart surgery Troponin positive: 153.5 -->506.7-->731.5-->373.1-->244.9 Echo ordered: EF 50-55%, Aortic valve sclerosis mild, Mild concentric left ventricular hypertrophy Nitro 0.4 SL as needed for chest pain (max 3 doses over 15min) Appreciated cardiology consult: Recommended repeat coronary angiography and Percutaneous intervention Patient prefer medical intervention for now Plavix, Heparin for 48 hrs, PTT ordered Carvedilol 3.125 mg BID Lipitor 40 mg Hypertension: BP 153/70 on arrival Patient is not on any hypertensive medications at home -Low dose beta blockers. Monitor bradycardia Coronary artery disease: Sever left main coronary disease Cardiology recommended surgical revascularization, not interested Medical therapy for now Shingles: First noticed by patient 2 weeks ago Patient has tried some natural remedies Clinically, shingles are beginning to crust over; will hold intervention at this time Maintain standard contact precautions Plan Disposition: Admit to PCU telemetry DNR/DNI AHA Diet VTE PPx: Heparin Admission and Anticipated Discharge Date Admission Date: June 14, 2023 Subjective Pt is a [] yo [] with a past medical history of [] who presents to the hospital on [] for []. Review of Systems Review of Systems: Constitutional: denies fever, chills, [] HEENT: denies congestion, sore throat Cardio: denies chest pain, palpitations Resp: denies shortness of breath, cough GI: denies abdominal pain, nausea, vomiting, constipation, diarrhea : denies pain with urination, change in urinary frequency Neuro: denies new numbness, tingling, weakness Physical Exam Physical Exam: General:Alert and oriented, no acute distress, [] HEENT: Normocephalic, moist oral mucosa, Cardio: Regular rate and rhythm, no murmur, Resp:Lungs clear to auscultation b/l, no wheezes or rhonchi, GI: Soft and nontender, nondistended, bowel sounds active Skin: Warm, pink, dry, Psych: Mood-affect congruence. Results & Data Results & Data Vital Signs (Past 12 Hours) Vital Signs Temp Pulse Pulse Resp BP Pulse Ox Pulse Ox 06/16/23 07:30 36.7 C 53 L 18 151/76 H 95 06/16/23 03:00 36.5 C 57 L 20 129/85 96 06/15/23 22:00 58 L 06/15/23 21:58 95 06/15/23 22:41 36.5 C 61 20 146/72 H 95 06/15/23 19:57 36.5 C 54 L 20 152/76 H 97 O2 Del Method O2 Del Method 06/16/23 07:30 Room Air 06/16/23 03:00 Room Air 06/15/23 22:00 06/15/23 21:58 Room Air 06/15/23 22:41 Room Air 06/15/23 19:57 Room Air
[2023-06-16] MEDS: carvediloL 3.125 MG TAB PO SCH (08:31)
[2023-06-16] MEDS: ATORVASTATIN 40 MG TAB PO SCH (08:31)
[2023-06-16] MEDS: ASPIRIN 81 MG ECTAB PO SCH (08:31)
[2023-06-16 08:33] LABS: Magnesium 2.1 mg/dl (1.7-2.4)
[2023-06-16] MEDS ORDERED: CLOPIDOGREL BISULFATE 75 MG TAB PO SCH (09:00)
--- NOTE | 2023-06-16 11:28 | Cardiology Progress Note ---
Date of Service June 16, 2023 Assessment & Plan (1) Non-ST elevation SD (NSTEMI): (2) Coronary artery disease: (3) Valvular heart disease: Plan 1. NSTEMI: Unclear mechanism. Cannot exclude an acute coronary syndrome. We can discontinue heparin after 48 hours. He will continue on dual anti-platelet therapy and low-dose carvedilol. Atorvastatin also added. Weak and had a discussion regarding the options for management. I reiterated that an invasive strategy is superior to medical therapy in this circumstance. However, he wishes to continue with his medications and attempt limiting his exertion noted to treat his coronary disease. 2. Coronary artery disease: Known to have severe left main coronary disease. Unknown if this represents an acute coronary syndrome possibly involving the right coronary artery. However, we will continue medical therapy and attempts at aggressive secondary prevention. 3. Aortic stenosis: Reported to have mild aortic stenosis previously. Current examination did not demonstrate a significant gradient noted the dimensionless i ndex was somewhat reduced. Not think this represents a clinical concern or any role in his symptoms. 4. Hypertension: He continues to have some elevated blood pressures at times. From a symptom standpoint he it would be reasonable to prescribe a daily nitrate. However, I am not sure how minimal and be to additional medication. If he is ambulatory without symptoms later this afternoon he could conceivably be discharged. He is anxious to leave the hospital. I would continue medications as noted above. 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 Bello within 2 weeks. Admission and Anticipated Discharge Date Admission Date: June 14, 2023 Subjective This morning patient claimed he feeling well. He has done minimal ambulation due to the constraints of his intravenous medication. No recurrent chest pain. No breathing difficulty. No sense of palpitation. No dizziness or lightheadedness when getting up. Review of Systems Review of Systems: Per HPI Physical Exam Physical Exam: The patient is alert and oriented. Mood and affect appeared normal. He answered all questions appropriately. HEENT: Pupils are equal and reactive to light and accommodation. Extraocular movements are intact. The sclerae are anicteric. Neuro: Cranial nerves intact Lungs: Clear to auscultation bilaterally. He has good air movement without use of accessory muscles. No rales wheezes or rhonchi. Cardiac: Heart demonstrates a regular rate and rhythm. Normal S1 and S2. No murmurs on examination. Pulses: The patient has palpable radial pulses bilaterally that are equal in intensity Extremities: There was no evidence of hypoperfusion. There is no cyanosis or clubbing. There is no edema. Results & Data Vital Signs (Past 12 Hours) Vital Signs Temp Pulse Pulse Resp BP Pulse Ox O2 Del Method 06/16/23 07:54 62 06/16/23 07:30 36.7 C 53 L 18 151/76 H 95 Room Air 06/16/23 03:00 36.5 C 57 L 20 129/85 96 Room Air Laboratory Results Abnormal Lab Results 06/15/23 06/15/23 06/15/23 10:54 14:30 22:44 WBC RBC Hgb Hct MCV MCH MCHC RDW Std Deviation RDW Coeff of [place] Plt Count MPV Immature Gran % (Auto) Neut % (Auto) Lymph % (Auto) [place] % (Auto) Eos % (Auto) Baso % (Auto) Neut # (Auto) Lymph # (Auto) [place] # (Auto) Eos # (Auto) Baso # (Auto) Immature Gran # (Auto) APTT 73.5 H* 75.5 H* PTT Ratio 2.6 2.7 Sodium Potassium Chloride Carbon Dioxide Anion Gap BUN Creatinine Est Cr Clr Drug Dosing Est GFR ( Amer) Est GFR (Non-Af Amer) BUN/Creatinine Ratio Glucose Calcium Magnesium Troponin I High Sens 244.9 H* D 06/16/23 06/16/23 06/16/23 06:35 06:35 06:35 WBC 4.95 RBC 4.78 Hgb 14.1 Hct 43.4 MCV 90.8 MCH 29.5 MCHC 32.5 RDW Std Deviation 42.7 RDW Coeff of [place] 12.9 Plt Count 149 MPV 10.1 Immature Gran % (Auto) 0.2 Neut % (Auto) 46.7 Lymph % (Auto) 37.0 [place] % (Auto) 12.9 Eos % (Auto) 2.8 Baso % (Auto) 0.4 Neut # (Auto) 2.31 Lymph # (Auto) 1.83 [place] # (Auto) 0.64 H Eos # (Auto) 0.14 Baso # (Auto) 0.02 Immature Gran # (Auto) 0.01 APTT 84.0 H* PTT Ratio 3.0 Sodium 140 Potassium 4.0 Chloride 107 Carbon Dioxide 28 Anion Gap 5 BUN 19 Creatinine 0.68 Est Cr Clr Drug Dosing 78.9 Est GFR ( Amer) 104.5 Est GFR (Non-Af Amer) 90.2 BUN/Creatinine Ratio 27.9 H Glucose 92 Calcium 8.6 Magnesium 2.1 Troponin I High Sens Diagnostic Findings Cardiac catheterization 01/25/2022: Multivessel coronary disease including 67% proximal left main, 40-50% distal left anterior descending, 90% proximal stenosis of a left-sided posterolateral branch, 50-60% mid RCA disease with 80% proximal stenosis of a small right posterolateral branch. Patent stents noted in the mid circumflex and proximal right coronary artery. 06/15/2023: Normal LV systolic function and wall motion. Ejection fraction 50- 55%. Mild LVH. Aortic valve sclerosis without significant stenosis. Mild to moderate mitral regurgitation. Obtained 06/06/2023: No acute cardiopulmonary process PG Care Time/CCT Total # of Minutes Spent Total Time Spent with Patient: Total time spent is greater than 50% in coordination of care (as documented) at patient's floor/unit and/or counseling patient: Coding Level of Care Code 61850 SUB INP/OBS CARE 2/35MIN Diagnoses Non-ST elevation SD (NSTEMI) I21.4 Coronary artery disease I25.10 Valvular heart disease I38
--- NOTE | 2023-06-16 12:59 | Discharge Summary ---
Date of Service June 16, 2023 Admission HPI Per Admitting Provider Scott is an 89-year-old Pentecostal gentleman with PMH of HTN, aortic stenosis, HLD, and CAD. He presented for 8/10 chest pain that developed while shoveling in his barn this morning 06/14. Hx of cardiac cath and stent placement. He reports the present episode felt more intense than past episodes. In the past, patient has declined CABG/surgical intervention. Dr. Singer discussed this with the patient and encouraged him to consider his different treatment options, whether that be medical, surgical, or choosing to abstain. The patient has not taken prescription medications over the past 2 years. Was previously following with Dr. Bello after stent placement. He has not been taking aspirin, plavix, metoprolol, antihypertensives, or cholesterol medications. Patient denies chest pain while in the ED. Patient further denies chest pain at rest in the last 6 months, but endorses "chest pressure on exertion" while walking up hills. He is also had shingles x2 weeks along the right lateral rib cage, underneath the right breast, and along the right mid-back. Patient's recently past away in March. Vitals stable on admission. ED Course: ASA, heparin ROS: Patient endorses intermittent chest pain that comes on with exertion Patient denies fever, chills, CP (at present), SOB, abdominal pain, or numbness/tingling/pain down the legs. Admission Exam Per Admitting Provider General: patient appears in no acute distress; appears stated age; well- nourished; cooperative HEENT: normocephalic, atraumatic; no scleral icterus; PERRLA w/ EOMs intact; moist mucus membrane; trachea midline; vision and hearing grossly intact Skin: warm, dry without signs of tenting; no cyanosis; red/brown crusting lesions that follow dermatome along the right upper back, and right lower breast Cardiac: Regular rhythm; 2/6 systolic murmur auscultated at the second [facility] Pulm: no acute respiratory distress; symmetrical chest expansion; clear breath sounds across all lung mariscal without adventitious sounds Abdominal: Soft, nontender to palpation; BS present; no ascites; inguinal hernia MSK: no tics or fasciculations; no edema noted in the LEs b/l; pulses intact and symmetrical at radial, DP, and PT Neuro: A&Ox3; no tremors; no focal defects Principal Diagnosis NSTEMI Discharge Exam General:Alert and oriented, no acute distress, laying comfortably HEENT: Normocephalic, moist oral mucosa, Cardio: Regular rate and rhythm, no murmur, Resp:Lungs clear to auscultation b/l, no wheezes or rhonchi, Skin: Warm, pink, dry, shingles noted on R side along dermatome distribution T5 or T6, lesions crusted over Psych: Mood-affect congruence. Discharge Data Allergies Allergy/AdvReac Type Severity Reaction Status Date / Time No Known Allergies Allergy Verified 06/14/23 15:48 Consultations 06/14/23 18:30 ED Decision to Admit Stat 06/14/23 21:58 Consult Cardiology Routine Hospital Course (1) Chest pain: (2) Hypertension: (3) Coronary artery disease: (4) Shingles: Plan Pt is an 89-year-old Pentecostal gentleman with PMH of HTN, aortic stenosis, HLD, and CAD. #NSTEMI - Acute onset severe CP while shoveling in his barn on 06/14 - Hx of CAD w/ 2 stent placement (left main) - In the past, patient declined CABG / heart surgery - Troponin positive: 153.5 -->506.7-->731.5-->373.1-->244.9 - Echo ordered: EF 50-55%, Aortic valve sclerosis mild, Mild concentric left ventricular hypertrophy - pt does not want a cath/PCI this admission, wants to do medical management only - pt started on carvedilol, aspirin, plavix, atorvastatin, - cardiology recommending imdur 30 mg be added as well - will send these medications to the pharmacy on discharge #Hypertension - BP 153/70 on arrival, has been 130-150s systolic through admission - Patient is not on any hypertensive medications at home currently #Coronary artery disease - Severe left main coronary disease - Cardiology recommended surgical revascularization, not interested - pt wants medical therapy for now #Shingles - First noticed by patient 2 weeks ago - Patient has tried some natural remedies - Clinically, shingles are beginning to crust over; will hold intervention at this time Total Time Total Time Spent Total Time Spent (In Minutes): As per attending attestation. Discharge Plan Discharge Items Patient Disposition: Home - Self-Care Reason For Visit: CHEST PAIN Discharge Diagnosis: NSTEMI Activity: Per Instructions section Non-emergency contact: Primary Care Provider and Day Porter Call non-emergency contact if: you have any medication questions and your symptoms worsen Follow-up/Referrals: Ayaka Bartlett CRNP [Primary Care Provider] - 06/23/23 10:30 am (Follow up scheduled on 06/23/23 @ 10:30) Diet: Heart Healthy Addtl Attending Provider Instructions: You were admitted for NSTEMI (non-ST elevation myocardial infarction) also known as a heart attack. You were treated with medications at this time, including an anticoagulant called Plavix(blood thinner), beta renan, aspirin, and a statin. Your symptoms have improved and we feel it is safe for you to go home at this time. Medications: Your medication list has been reviewed and reconciled upon discharge to ensure accuracy and continuity of care. An updated list of all your medications is included with your hospital discharge paperwork. Please review this list closely, and make note of any changes. We sent a new medication called Aspirin to your pharmacy. Take Aspirin 81 mg daily. We sent a new medication called Atorvastatin to your pharmacy. Take Atorvastatin 40 mg daily. We sent a new medication called Carvedilol to your pharmacy. Take Carvedilol 3.125 mg twice daily. We sent a new medication called Clopidogrel to your pharmacy. Take Clopidogrel 75 mg daily. We sent a new medication called Isosorbide mononitrate to your pharmacy. Take Isosorbide mononitrate 30 mg daily. These medications are all recommended for patients that have had a heart attack. If you have any issues filling these prescriptions, please call [phone] and ask to leave a message for Dr. Sutton. Take your medications as instructed; do not skip a dose of your medicines. Make sure all of your doctors know every medi cine you are taking (including noju-gcw-vjlqodt medicines, vitamins, and supplements). Call your primary care provider before taking any new medicines (including over- the-counter medicines, vitamins, and supplements), because some of these may interact with your current medications, or may make your symptoms worse. Tell your primary care provider if you cannot afford your medications. Activity: You can do normal everyday activities as your body allows. Take rest breaks if you feel tired. Do not overexert. Stop activity if you have pain, shortness of breath or feel dizzy. Follow-up appointments: Make an appointment with your primary care physician within one week of discharge. A copy of this summary will be sent to them. Every time you see your primary care physician, or any other doctor, bring your medication list, a list of questions, and your recent weights. CONTACT YOUR PRIMARY CARE PROVIDER if you experience any of the following: Shortness of breath or difficulty breathing Swelling of your feet, ankles, hands or abdomen Feeling tired with normal activity or experiencing dizziness or fainting Difficulty following your treatment plan, or difficulty taking medications CALL 911 OR GO TO THE EMERGENCY DEPARTMENT if you experience any of the following: Severe abdominal pain or nausea/vomiting Severe chest pain, or chest pain that radiates (moves) to your jaw or arm Sudden, severe shortness of breath or difficulty breathing Thank you for allowing us to participate in your care. Pending Studies at Discharge: No Stand-Alone Forms: My [facility] Medications and DC Order Prescriptions: New atorvastatin 40 mg Tablet 40 mg PO QAM Qty: 30 11RF clopidogrel 75 mg Tablet 75 mg PO QAM Qty: 30 11RF aspirin 81 mg Tablet,Delayed Release (Dr/Ec) 81 mg PO QAM Qty: 30 11RF carvedilol 3.125 mg Tablet 3.125 mg PO BIDM Qty: 30 11RF isosorbide mononitrate 30 mg tablet extended release 24 hr 30 mg PO QAM Qty: 30 11RF No Action No Known Home Medications Discharge Orders: Discharge Order (Routine); Ordered 06/16/23 Ordered By: Sandhya Eric/Other Patient Handouts: Exercising After a Heart Attack, Heart Attack Questions, Heart Attack: Back at Home Admission Data Admit Date/Time: 06/14/23 19:07 Attending Provider: Jarett Hutchins Admit Provider: Jose M Singer Primary Care Provider: Ayaka Bartlett Other Providers: Jose M Singer ; Jarett Fortune Other Interventions: Discharge Summary Assessment (RN) Last Done: 06/16/23 13:36 Supervising Physician Co-Signing Physician Notes Attending attestation Pt seen and examined in concert with Dr. Sutton. In agreement with the documented findings as noted in the resident documentation with any exceptions or additions as noted here. No acute complaints at present. On examination, S1/S2 nl RRR no MCG. CTAB. Abd NT/ND BS+ve NSTEMI in the setting of h/o CAD s/p previous stent - declines PCI/cath - continue carvedilol, ASA, plavix, atorvastatin, imdur. f/u cardiology on discharge HTN - medical management as noted, chemical dependency counselor for low sodium diet Else see resident documentation as noted. Total attending physician time spent with this patient's care on the day of discharge: 35 minutes. Resident Activity Tracking Resident Involvement: Resident Care Provided Care Provided: Adult [facility] Medicine
== END 2023-06-16 14:35 | disposition home or self-care (01) | DRG 282 ==
LOC: ED 15:15 → SUATTDRO 19:07 → 4W 19:07
DX: I10 Essential (primary) hypertension; I35.0 Nonrheumatic aortic (valve) stenosis; Z95.5 Presence of coronary angioplasty implant and graft; B02.9 Zoster without complications; Z83.3 Family history of diabetes mellitus; Z66 Do not resuscitate; I25.2 Old myocardial infarction; I21.4 Non-ST elevation (NSTEMI) myocardial infarction; I25.10 Atherosclerotic heart disease of native coronary artery without angina pectoris; E78.5 Hyperlipidemia, unspecified

== ENCOUNTER 2023-12-14 23:43 | Inpatient (IN) ==
[2023-12-15 00:43] LABS: Basophils # (auto) 0.02 K/uL (0.00-0.20); Basophils % (auto) 0.4 %; Hematocrit (blood only) 41.6 % (42.0-52.0); Hemoglobin 13.6 g/dl (14.0-18.0); Immature Granulocytes # (auto) 0.01 K/uL (0.01-0.20); Immature Granulocytes % (auto) 0.2 %; Lymphocytes # (auto) 1.33 K/uL (1.20-3.40); Mean Corpuscular Hemoglobin 29.3 pg (25.0-34.0); Mean Corpuscular Hgb Conc 32.7 g/dL (32.0-36.0); Mean Corpuscular Volume 89.7 fL (80.0-100.0); Monocytes # (auto) 0.62 K/uL (0.11-0.59); Monocytes % (auto) 12.1 %; Neutrophils # (auto) 3.03 K/uL (1.40-6.50); Neutrophils % (auto) 59.3 %; Platelet Count 209 K/uL (130-400); RDW Coefficient of Variation 12.4 % (11.5-14.5); RDW Standard Deviation 40.8 fL (36.4-46.3); Red Blood Count 4.64 M/uL (4.70-6.10); White Blood Count 5.11 K/ul (4.8-10.8)
[2023-12-15 00:53] LABS: Albumin Globulin Ratio 1.1 (0.9-2); Albumin Level 3.6 gm/dl (3.4-5.0); BUN Creatinine Ratio 27.2 (10-20); Bilirubin,Total 0.3 mg/dl (0.2-1.0); Calcium 8.7 mg/dl (8.6-10.3); Est GFR (African American) 90.1 ml/min; Est GFR (Non-African American) 77.7 ml/min; Globulin 3.2 gm/dl (2.5-4.0); Magnesium 1.8 mg/dl (1.7-2.4); Potassium 3.9 mmol/L (3.5-5.1); Total Protein 6.8 gm/dl (6.0-8.3)
[2023-12-15 01:04] LABS: Prothrombin Time 11.4 Seconds (9.0-12.0)
[2023-12-15 01:09] LABS: Thyroid Stimulating Hormone 1.138 uIu/ml (0.300-4.500)
--- NOTE | 2023-12-15 02:06 | Emergency Department Note ---
Impression & Plan Chest pain, Acute non-ST elevation myocardial infarction (NSTEMI) ED Provider Note ED Provider Note NAME: JONATHAN RAYA AGE:83 SEX: Male : 1940 ARRIVES VIA: EMS INFORMANT: Patient ED PROVIDER(s): Rosalba Carl DO CHIEF COMPLAINT: Chest pain HPI: This is an 83-year-old male presents emergency department due to concern for chest pain. Patient states he was walking around his house normally at home tonight when he developed central chest pain that radiated into bilateral upper extremities down to the level of the elbow. No radiation into the back or neck. He denies any coming diaphoresis, nausea or vomiting, dizziness, or shortness of breath. Patient states he had an episode of chest pain that did produce nausea on Friday however that resolved on its own. He states the pain tonight seem more severe and so 911 was called. He was given 4 baby aspirin by EMS and by the time of my evaluation, he stated the pain had resolved. Patient states he does have a history of heart problems and does have 2 indwelling stents. He states he was previously told he may need a CABG but he did not wish to do that. There is also documentation that suggest patient has previously also been noncompliant with medication. Patient did have hernia surgery in [place] 6 weeks ago but felt he has been healing well from that. No recent leg swelling or calf tenderness. He denies any recent fevers, chills, or URI symptoms. No other recent change in medications. He states he follows with Dr. Bello of cardiology. PAST MEDICAL HISTORY:See Below PAST SURGICAL HISTORY:See Below FAMILY HISTORY:See Below SOCIAL HISTORY:See Below HOME MEDICATIONS:See Below ALLERGIES:See Below VITALS:See Below PHYSICAL EXAMINATION: GENERAL: alert, well appearing, well nourished, no distress, non-toxic EYE EXAM: normal conjunctiva, PERRL and EOM's grossly intact OROPHARYNX: no exudate, no erythema, lips, buccal mucosa, and tongue normal and mucous membranes are moist NECK: supple, no nuchal rigidity, no adenopathy, non-tender LUNGS: Clear to auscultation. Normal chest wall mechanics, no w/r/r HEART: no murmurs, S1 normal and S2 normal ABDOMEN: abdomen soft, non-tender, normo-active bowel sounds, no masses, no rebound or guarding. BACK: Back is symmetrical on inspection and there is no deformity, no midline tenderness, no CVA tenderness. SKIN: no rashes, petechiae, orbruising UPPER EXTREMITIES: upper extremities are grossly normal. FROM, nml pulses b/l. LOWER EXTREMITIES: No pitting edema. FROM, nml pulses b/l. NEURO EXAM: Normal sensorium, cranial nerves II-XII grossly intact, normal speech, no facial droop,nogross weakness of arms, no gross weakness of legs. Gross sensation intact. No ataxia. Vital Signs: reviewed and remarkable Differential Diagnosis: acute coronary syndrome, pericarditis, pulmonary embolus, aortic dissection, pneumonia, pneumothorax, musculoskeletal pain, shingles, GERD, GI bleed, as well as others were considered MEDICAL DECISION MAKING: This is an 83-year-old male presents emerged from due to concern for episode of chest pain tonight. Patient said intermittent chest pain recently, which she feels have been more severe than prior episodes. Patient with known CAD and does follow with cardiology. On arrival here patient had no complaints of pain. He was afebrile vital signs stable. Labs drawn and sent, IV established, EKG and chest ray performed bedside interpreted by me and patient monitor on telemetry. Patient was noted to have EKG changes compared to prior EKGs. Chest x-ray reassuring. Patient found to have an elevated troponin on labs. He had no recurrent chest pain while in the emergency department. I did discuss my concern for possible NSTEMI with him. After lengthy bedside discussion, he wished for his tire recapper Dr. Bello to be notified it was in agreement with plan for additional inpatient management. Patient started on heparin drip in case discussed with hospitalist team. I did send a message to his tire recapper, Dr. Bello. Consultation(s): 0253: Discussed with Dr. Stark, [place] hospitalist, for additional evaluation and mgmt. ER Treatment Provided: See below Diagnostics Interpreted By Me: -ECG: Normal sinus at 67, normal axis, normal intervals, ST depression noted in 2, 3, aVF, and V4 through V6, this is new compared to the prior EKG from May 2023 -Cardiac Monitoring: An order was placed for continuous cardiac monitoring. The monitor shows a rate of 72 with normal sinus rhythm. -Laboratory studies: As stated above and show below. -Imaging studies: X-ray Chest: A single view study of the chest was reviewed and was negative for cardiomegaly, focal infiltrate, effusion, pulmonary edema, or wide mediastinum. Triage Nursing Note Reviewed Prior/Outside Records Reviewed -cardiology visit from September 2023 reviewed Critical Care: Critical care of 41 min performed to assess and manage high likelihood of life- threatening ACS, involving labs and imaging performed with assessment to evaluate chest pain diagnosis with frequent reassessment. This time includes bedside time, treatment discussions with patient/family/consultants, documentation time and excludes procedure time. Past Med/Surg History Medical History Chest pain Non-ST elevation ME (NSTEMI) Shingles Chest pain Past myocardial infarction Surgical History History of mandibular surgery History of tonsillectomy History of intravascular stent placement Family History Sister Breast cancer Cancer Mother Diabetes Denies family history of Ovarian cancer Prostate cancer Myocardial infarction Colorectal cancer Social History Smoking Status: Never smoker Second Hand Exposure: No; Do You Dip or Chew Tobacco: No; Hx Alcohol Use: No Hx Substance Use: No Preferred Language: R[place] Communication Ability: Effective Compugraph Operator Required: No Beliefs That Will Affect Care: None Current Living Situation: Alone Current Living Situation Comment: pts recently passed Feels Safe at Home: Yes Assistive Devices: None Allergies Allergies Allergy/AdvReac Type Severity Reaction Status Date / Time No Known Allergies Allergy Verified 12/15/23 01:32 Home Meds Previous Rx's Medication Instructions Recorded atorvastatin 40 mg tablet 40 mg PO QAM #30 tabs 07/04/23 carvedilol 3.125 mg tablet 3.125 mg PO BIDM #60 tabs 07/04/23 clopidogrel 75 mg tablet 75 mg PO QAM #30 tabs 07/04/23 isosorbide mononitrate 30 mg 30 mg PO QAM #30 tabs 07/04/23 tablet,extended release 24 hr Results & Data (ED) Vital Signs Vital Signs - 24 hr 12/14/23 23:49 12/14/23 23:49 Temperature 36.7 C Temperature Source Oral Pulse Rate 68 70 Respiratory Rate 16 Respiratory Effort / Characteristics Non-Labored Spontaneous Respiratory Depth Normal Blood Pressure 119/68 Blood Pressure Mean 85 Pulse Oximetry 96 Oxygen Delivery Method Room Air Sepsis Recent Fever Within 48 Hours No Sepsis New/Unexplained Change in Mental Status N/A Sepsis Action Taken by Nursing No Action Required Laboratory Data 12/14/23 23:50 12/16/23 02:05 Lab Results 12/14/23 Range/Units 23:50 WBC 5.11 (4.8-10.8) K/ul RBC 4.64 L (4.70-6.10) M/uL Hgb 13.6 L (14.0-18.0) g/dl Hct 41.6 L (42.0-52.0) % MCV 89.7 (80.0-100.0) fL MCH 29.3 (25.0-34.0) pg MCHC 32.7 (32.0-36.0) g/dL RDW Std Deviation 40.8 (36.4-46.3) fL RDW Coeff of [place] 12.4 (11.5-14.5) % Plt Count 209 (130-400) K/uL MPV 10.0 (9.4-12.4) fL Immature Gran % (Auto) 0.2 % Neut % (Auto) 59.3 % Lymph % (Auto) 26.0 % Whitman % (Auto) 12.1 % Eos % (Auto) 2.0 % Baso % (Auto) 0.4 % Neut # (Auto) 3.03 (1.40-6.50) K/uL Lymph # (Auto) 1.33 (1.20-3.40) K/uL Whitman # (Auto) 0.62 H (0.11-0.59) K/uL Eos # (Auto) 0.10 (0.00-0.50) K/uL Baso # (Auto) 0.02 (0.00-0.20) K/uL Immature Gran # (Auto) 0.01 (0.01-0.20) K/uL PT 11.4 (9.0-12.0) Seconds INR 1.0 (0.9-1.1) Sodium 139 (136-145) mmol/L Potassium 3.9 (3.5-5.1) mmol/L Chloride 105 (98-107) mmol/L Carbon Dioxide 27 (21-32) mmol/L Anion Gap 7 (3-11) BUN 25 H (6-23) mg/dl Creatinine 0.92 (0.6-1.4) mg/dl Est Cr Clr Drug Dosing 55.0 ml/min Est GFR ( Amer) 90.1 ml/min Est GFR (Non-Af Amer) 77.7 ml/min BUN/Creatinine Ratio 27.2 H (10-20) Glucose 134 H (70-99(Fasting)) mg/dl Calcium 8.7 (8.6-10.3) mg/dl Magnesium 1.8 (1.7-2.4) mg/dl Total Bilirubin 0.3 (0.2-1.0) mg/dl AST 12 L (13-39) U/L ALT 9 (7-52) U/L Alkaline Phosphatase 70 (34-104) U/L Troponin I High Sens 52.0 H* (0-20) pg/ml Total Protein 6.8 (6.0-8.3) gm/dl Albumin 3.6 (3.4-5.0) gm/dl Globulin 3.2 (2.5-4.0) gm/dl Albumin/Globulin Ratio 1.1 (0.9-2) Lipase 12 (11-82) U/L TSH 1.138 (0.300-4.500) uIu/ml Administered Medications Aspirin (Aspirin 81 Mg Ectab) 81 mg PO [facility] Stop: 01/14/24 08:59 Last Admin: 12/15/23 08:36 Dose: 81 mg Documented By: MARII Atorvastatin Calcium (Atorvastatin 40 Mg Tab) 40 mg PO [facility] Stop: 01/14/24 08:59 Last Admin: 12/15/23 08:36 Dose: 40 mg Documented By: MARII Carvedilol (Carvedilol 3.125 Mg Tab) [facility] Stop: 01/14/24 07:59 Last Admin: 12/15/23 18:06 Dose: 3.125 mg Documented By: Admin: 12/15/23 08:36 Dose: 3.125 mg Documented By: MARII Clopidogrel Bisulfate (Clopidogrel Bisulfate 75 Mg Tab) 75 mg PO [facility] Stop: 01/14/24 08:59 Last Admin: 12/15/23 08:36 Dose: 75 mg Documented By: MARII Heparin Sodium/Dextrose (Heparin Sodium/Dextrose) 25,000 units in 500 mls @ 19 mls/hr IV .Q24H [facility]; Protocol Stop: 01/14/24 02:29 Last Titration: 12/15/23 20:01 Dose: 950 units/hr, 19 mls/hr Documented By: NILTON Co-signed By: ANGEL Titration: 12/15/23 10:47 Dose: 850 units/hr, 17 mls/hr Documented By: MARII Co-signed By: ZENON Admin: 12/15/23 02:34 Dose: 750 units/hr, 15 mls/hr Documented By: CHLOÉ Co-signed By: CARA Discontinued Medications Fentanyl Citrate (Fentanyl Citrate Pf 100 Mcg/2 Ml Vial) Confirm Administered Dose 100 mcg .ROUTE .STK-MED ONE Stop: 12/15/23 11:13 Last Increment: 12/15/23 12:01 Dose: 25 mcg Documented By: MANUEL Heparin Sodium (Porcine) (Heparin Sod (Porcine) 1000 Unit/Ml) 2,000 units IV NOW ONE Stop: 12/15/23 11:16 Last Admin: 12/15/23 13:15 Dose: 2,000 units Documented By: MARII Co-signed By: ZENON Heparin Sodium (Porcine) (Heparin (Porcine) 1000 Unit/Ml 10 Ml (Boarding Kennel Or Cattery Operator Use Only)) Confirm Administered Dose 10,000 units .ROUTE .STK-MED ONE Stop: 12/15/23 11:12 Last Admin: 12/15/23 12:03 Dose: Not Given Documented By: MANUEL Heparin Sodium (Porcine) (Heparin Sod (Porcine) 1000 Unit/Ml) 2,000 units IV NOW ONE Stop: 12/15/23 19:51 Last Admin: 12/15/23 19:59 Dose: 2,000 units Documented By: NILTON Co-signed By: ANGEL Heparin Sodium/Dextrose (Heparin Iv Adult Wt-Based Low-Dose *No* Initial Bolus Protocol) 1 each IV ONE STA; Protocol Stop: 12/15/23 02:07 Last Admin: 12/15/23 03:15 Dose: Not Given Documented By: CHLOÉ Heparin Sodium/Sodium Chloride (Heparin In Nss Infusion 1000 Unit/500 Ml (2 U/Ml) Bag) Confirm Administered Dose 3,000 units IV .STK-MED ONE Stop: 12/15/23 11:13 Last Admin: 12/15/23 11:49 Dose: 3,000 units Documented By: MANUEL Sodium Chloride (Nss) 1,000 mls @ 100 mls/hr IV .Q10H [facility] Stop: 01/14/24 02:14 Last Admin: 12/15/23 07:31 Dose: Not Given Documented By: MARII Potassium Chloride/Sodium Chloride (Normal Saline W/20 Meq Kcl) 20 meq in 1,000 mls @ 80 mls/hr IV .[id number] [facility]; Protocol Stop: 12/15/23 15:44 Last Infusion: 12/15/23 16:03 Dose: Infused Documented By: Admin: 12/15/23 05:19 Dose: 80 mls/hr Documented By: NILTON Ioversol (Optiray 350) Confirm Administered Dose 1 ml .ROUTE .STK-MED ONE Stop: 12/15/23 11:15 Last Admin: 12/15/23 12:02 Dose: 60 ml Documented By: MANUEL Isosorbide Mononitrate (Isosorbide Whitman Extended Rel 30 Mg Tabcr) 30 mg PO QAM [facility] Stop: 01/14/24 08:59 Last Admin: 12/15/23 08:36 Dose: 30 mg Documented By: MARII Midazolam HCl (Midazolam Hcl 1 Mg/Ml 2ml Vial) Confirm Administered Dose 2 mg .ROUTE .STK-MED ONE Stop: 12/15/23 11:12 Last Increment: 12/15/23 12:01 Dose: 1 mg Documented By: MANUEL Miscellaneous Information (Nursing To Pharmacy Communication) 1 each N/A TODAY [facility] Stop: 01/14/24 10:14 Last Admin: 12/15/23 11:03 Dose: Not Given Documented By: AMRII Nicardipine HCl (Nicardipine Hcl Inj 2.5 Mg/Ml 10 Ml Amp) Confirm Administered Dose 25 mg .ROUTE .STK-MED ONE Stop: 12/15/23 11:13 Last Admin: 12/15/23 11:50 Dose: 25 mg Documented By: MANUEL Nitroglycerin/Dextrose (Nitroglycerin/D5w 100mcg/Ml 20ml Syr) Confirm Administered Dose 2,000 mcg .ROUTE .STK-MED ONE Stop: 12/15/23 11:15 Last Admin: 12/15/23 11:50 Dose: 2,000 mcg Documented By: MANUEL Discharge Plan Visit Data Chief Complaint: Chest Pain Stated Complaint: MID STERNAL CHEST PAIN ED Provider: Rosalba Carl Discharge Problem: Chest pain, Acute non-ST elevation myocardial infarction (NSTEMI) Patient Disposition: Admitted As Inpatient Discharge Instructions Interventions: ED Discharge Assessment Last Done: 12/15/23 04:01
[2023-12-15] MEDS: HEPARIN SODIUM/DEXTROSE 25,000 UNITS/500 ML BAG IV SCH (02:34)
--- NOTE | 2023-12-15 03:03 | History & Physical Report ---
Date of Service December 15, 2023 Assessment & Plan (1) Acute non-ST elevation myocardial infarction (NSTEMI): (2) Abnormal EKG: (3) Aortic stenosis: (4) Hypertension: (5) Coronary artery disease: (6) Hyperlipidemia: (7) Chest pain: Plan Acute NSTEMI/abnormal EKG/CAD/hypertension- The patient will be admitted to telemetry for serial cardiac enzymes, serial EKG's, cardiac rhythm monitoring and a 2-D echocardiogram with Dopplers. Initial troponin 52.0 with follow-up pending EKG shows inferior lateral ST-T wave changes suggestive of ischemia Continue heparin bolus/drip begun in the ED He did receive 4 baby aspirin by EMS en route to the hospital He reports that he has been somewhat negligent about taking his medications for the past few weeks due to frequent travel Continue carvedilol 3.125 mg p.o. twice daily, clopidogrel 75 mg p.o. every morning and isosorbide mononitrate 30 mg every morning Last admission at [facility] was from 06/14-06/16/2023, at which time patient reportedly reportedly was not taking his medications as directed Consult cardiology Hyperlipidemia- Continue atorvastatin 40 mg every morning Check a fasting blood panel and hemoglobin A1c Left inguinal hernia repair/prostate shaving- Patient went to [place] around May last year, and underwent surgery here, as he was not going to be approved for surgery here due to concerns regarding his heart function History of Present Illness Chief Complaint: The patient presents to the emergency department with complaint of 2 weeks of intermittent chest discomfort, that was significantly stronger and lasting longer than usual after he was walking around after jehovah's witness this morning. He reports that he went to sleep, when he woke up the pain was so severe he called EMS, who gave him 4 aspirin en route to the hospital, and by the time he reached the ED, he reports that the pain was gone Primary Care Provider: DANAY Chavez The patient is a 83-year-old male with a past medical history including CAD, valvular heart disease, aortic stenosis, hypertension, urinary incontinence, BPH with LUTS, and hyperlipidemia.. He reports that he has been somewhat lax about taking his medications on a regular basis over the past few weeks, due to traveling more frequently. He presents emergency department with chest pain as noted above, and resolution with 4 aspirin en route to the hospital. He reports that in May of last year, he went to [place] to have a left inguinal hernia repair and prostate surgery, because he was not going to be authorized to undergo surgery by Dr. Bello due to significant triple-vessel coronary disease, and Dr. Bello wanted him to have further heart assessments. He reports that he tolerated the procedure well, and has had no further issues with urinary dysfunction. Allergies Allergy/AdvReac Type Severity Reaction Status Date / Time No Known Allergies Allergy Verified 12/15/23 01:32 Home Medications Medication Instructions Recorded Confirmed Type atorvastatin 40 mg tablet 40 mg PO QAM #30 tabs 07/04/23 12/15/23 Rx carvedilol 3.125 mg tablet 3.125 mg PO BIDM #60 tabs 07/04/23 12/15/23 Rx clopidogrel 75 mg tablet 75 mg PO QAM #30 tabs 07/04/23 12/15/23 Rx isosorbide mononitrate 30 mg 30 mg PO QAM #30 tabs 07/04/23 12/15/23 Rx tablet,extended release 24 hr Past Med/Surg History Medical History Chest pain Non-ST elevation DC (NSTEMI) Shingles Chest pain Past myocardial infarction Surgical History History of mandibular surgery History of tonsillectomy History of intravascular stent placement Family History Sister Breast cancer Cancer Mother Diabetes Denies family history of Ovarian cancer Prostate cancer Myocardial infarction Colorectal cancer Social History Smoking Status: Never smoker Second Hand Exposure: No; Do You Dip or Chew Tobacco: No; Hx Alcohol Use: No Hx Substance Use: No Preferred Language: Persian Communication Ability: Effective Solutions Manager Required: No Beliefs That Will Affect Care: None Current Living Situation: Alone Current Living Situation Comment: pts recently passed Feels Safe at Home: Yes Assistive Devices: None Review of Systems Review of Systems: The patient denies palpitations, cough, lower extremity swelling, sore throat, fevers, chills, sweats, weight change, fatigue, nausea, vomiting, diarrhea , constipation, abdominal pain, pelvic pain, blood in urine or stool, dysuria, urinary frequency or urgency, lightheadedness, dizziness, headache, memory loss, loss of consciousness, rash, abnormal bruising or bleeding, imbalance, focal or generalized weakness, numbness or tingling in arms or legs, generalized arthralgias or myalgias, back or neck pain, or night sweats. The review of systems is otherwise negative other than for that already noted above, and at least 10 systems have been reviewed. Physical Exam Physical Exam: The patient is awake, alert and oriented 3, well developed and well nourished, normocephalic and atraumatic, lying in bed and in no acute distress. HEENT--PERRL, EOMI, mucous membranes and oropharynx normal Neck--supple. No JVD. No bruits. Thyroid normal, trachea midline, no adenopathy. Heart--normal S1 and S2. No murmurs, rubs or gallops. Lungs--clear bilaterally, no respiratory distress, no accessory muscle use. Abdomen--normal bowel sounds and soft. Nontender. Nondistended, no hernias or masses, no organomegaly. Extremities--no cyanosis or clubbing. No edema. Dermatologic--normal skin turgor, normal color, no abnormal lymph nodes, no rash. Neurologic--cranial nerves II through XII grossly intact. Rheumatologic--normal range of motion. Psychiatric--normal affect. Results & Data Results & Data Vital Signs (Past 12 Hours) Vital Signs Temp Pulse Resp BP Pulse Ox O2 Del Method 12/14/23 23:49 70 12/14/23 23:49 36.7 C 68 16 119/68 96 Room Air Laboratory Results Laboratory Results WBC 5.11 K/ul (4.8-10.8) 12/14/23 23:50 RBC 4.64 M/uL (4.70-6.10) L 12/14/23 23:50 Hgb 13.6 g/dl (14.0-18.0) L 12/14/23 23:50 Hct 41.6 % (42.0-52.0) L 12/14/23 23:50 MCV 89.7 fL (80.0-100.0) 12/14/23 23:50 MCH 29.3 pg (25.0-34.0) 12/14/23 23:50 MCHC 32.7 g/dL (32.0-36.0) 12/14/23 23:50 RDW Std Deviation 40.8 fL (36.4-46.3) 12/14/23 23:50 RDW Coeff of [place] 12.4 % (11.5-14.5) 12/14/23 23:50 Plt Count 209 K/uL (130-400) 12/14/23 23:50 MPV 10.0 fL (9.4-12.4) 12/14/23 23:50 Immature Gran % (Auto) 0.2 % 12/14/23 23:50 Neut % (Auto) 59.3 % 12/14/23 23:50 Lymph % (Auto) 26.0 % 12/14/23 23:50 Nash % (Auto) 12.1 % 12/14/23 23:50 Eos % (Auto) 2.0 % 12/14/23 23:50 Baso % (Auto) 0.4 % 12/14/23 23:50 Neut # (Auto) 3.03 K/uL (1.40-6.50) 12/14/23 23:50 Lymph # (Auto) 1.33 K/uL (1.20-3.40) 12/14/23 23:50 Nash # (Auto) 0.62 K/uL (0.11-0.59) H 12/14/23 23:50 Eos # (Auto) 0.10 K/uL (0.00-0.50) 12/14/23 23:50 Baso # (Auto) 0.02 K/uL (0.00-0.20) 12/14/23 23:50 Immature Gran # (Auto) 0.01 K/uL (0.01-0.20) 12/14/23 23:50 PT 11.4 Seconds (9.0-12.0) 12/14/23 23:50 INR 1.0 (0.9-1.1) 12/14/23 23:50 Sodium 139 mmol/L (136-145) 12/14/23 23:50 Potassium 3.9 mmol/L (3.5-5.1) 12/14/23 23:50 Chloride 105 mmol/L (98-107) 12/14/23 23:50 Carbon Dioxide 27 mmol/L (21-32) 12/14/23 23:50 Anion Gap 7 (3-11) 12/14/23 23:50 BUN 25 mg/dl (6-23) H 12/14/23 23:50 Creatinine 0.92 mg/dl (0.6-1.4) 12/14/23 23:50 Est Cr Clr Drug Dosing 55.0 ml/min 12/14/23 23:50 Est GFR ( Amer) 90.1 ml/min 12/14/23 23:50 Est GFR (Non-Af Amer) 77.7 ml/min 12/14/23 23:50 BUN/Creatinine Ratio 27.2 (10-20) H 12/14/23 23:50 Glucose 134 mg/dl (70-99(Fasting)) H 12/14/23 23:50 Calcium 8.7 mg/dl (8.6-10.3) 12/14/23 23:50 Magnesium 1.8 mg/dl (1.7-2.4) 12/14/23 23:50 Total Bilirubin 0.3 mg/dl (0.2-1.0) 12/14/23 23:50 AST 12 U/L (13-39) L 12/14/23 23:50 ALT 9 U/L (7-52) 12/14/23 23:50 Alkaline Phosphatase 70 U/L (34-104) 12/14/23 23:50 Troponin I High Sens 52.0 pg/ml (0-20) H* 12/14/23 23:50 Total Protein 6.8 gm/dl (6.0-8.3) 12/14/23 23:50 Albumin 3.6 gm/dl (3.4-5.0) 12/14/23 23:50 Globulin 3.2 gm/dl (2.5-4.0) 12/14/23 23:50 Albumin/Globulin Ratio 1.1 (0.9-2) 12/14/23 23:50 Lipase 12 U/L (11-82) 12/14/23 23:50 TSH 1.138 uIu/ml (0.300-4.500) 12/14/23 23:50 Code Status & VTE Plan Code Status Full code PG Care Time/CCT Total # of Minutes Spent Total Time Spent with Patient: Total time spent is greater than 50% in coordination of care (as documented) at patient's floor/unit and/or counseling patient: Coding Level of Care Code 51051 INT INP/OBS CARE 3/75MIN Diagnoses Acute non-ST elevation myocardial infarction (NSTEMI) I21.4 Abnormal EKG R94.31 Aortic stenosis I35.0 Primary hypertension I10 Hypertension type: primary hypertension Coronary artery disease I25.10 Pure hypercholesterolemia E78.00 Hyperlipidemia type: pure hypercholesterolemia Chest pain R07.9 (4) Hypertension Hypertension type: primary hypertension Qualified Code(s): I10 - Essential (primary) hypertension (6) Hyperlipidemia Hyperlipidemia type: pure hypercholesterolemia Qualified Code(s): E78.00 - Pure hypercholesterolemia, unspecified
[2023-12-15] MEDS: Heparin IV Adult Wt-Based Low-Dose *NO* INITIAL Bolus Protocol IV STA (03:15)
[2023-12-15] MEDS ORDERED: ACETAMINOPHEN 325 MG TAB PO PRN (03:55)
[2023-12-15] MEDS ORDERED: ONDANSETRON INJ 2 MG/ML 2 ML VIAL IV PRN (03:55)
[2023-12-15] MEDS: NSS + 20MEQ KCL 20 MEQ/1,000 ML BAG IV SCH (05:19)
--- NOTE | 2023-12-15 07:01 | XRay Report ---
XR chest 1V portable HISTORY: 83 years-old Male chest pain COMPARISON: 06/14/2023 TECHNIQUE: AP view of the chest FINDINGS: Cardiomediastinal and hilar silhouettes are within normal limits. No pneumothorax, pleural effusion, airspace consolidation or pulmonary edema. Mild linear retrocardiac left basilar atelectasis versus s carring is unchanged. The bones appear intact. Chronic mid left clavicular fracture deformity. IMPRESSION: No acute process. ACT 112: Negative or not required by law. The above report was generated using voice recognition software. It may contain grammatical, syntax o r spelling errors. Electronically signed by: Per Causey M.D. 12/15/2023 6:59 AM
[2023-12-15] MEDS: SODIUM CHLORIDE 0.9% 1,000 ML IV SCH (07:31)
[2023-12-15] MEDS: ASPIRIN 81 MG ECTAB PO SCH (08:36)
[2023-12-15] MEDS: ATORVASTATIN 40 MG TAB PO SCH (08:36)
[2023-12-15] MEDS: carvediloL 3.125 MG TAB PO SCH (08:36)
[2023-12-15] MEDS: CLOPIDOGREL BISULFATE 75 MG TAB PO SCH (08:36)
[2023-12-15] MEDS: ISOSORBIDE MONO EXTENDED REL 30 MG TABCR PO SCH (08:36)
[2023-12-15 10:00] LABS: ANTI-Xa, UFH(UnfractionatedHep 0.16 IU/ml (0.3-0.7); Albumin Level 3.5 gm/dl (3.4-5.0); BUN Creatinine Ratio 29.7 (10-20); Calcium 8.4 mg/dl (8.6-10.3); Chol HDL Ratio 3.3 (0-5); Creatinine Clr Calc Pharmacy 79.1 ml/min; Est GFR (African American) 106.4 ml/min; Est GFR (Non-African American) 91.8 ml/min; Phosphorus 2.6 mg/dl (2.5-4.9)
[2023-12-15 10:44] LABS: Estimated Average Glucose 131 mg/dl; Hemoglobin A1C 6.2 % (4.5-5.6)
[2023-12-15] MEDS: Nursing to Pharmacy Communication SCH (11:03)
--- NOTE | 2023-12-15 11:26 | Cardiology Consultation ---
Date of Consultation December 15, 2023 Assessment & Plan (1) Unstable angina pectoris due to coronary arteriosclerosis: -increasing angina pectoris over 2 weeks, now with rest pain. -agree with intravenous heparin. -he finally agrees to consider CABG. -will proceed with a cardiac catheterization today. (2) Coronary artery disease: -significant disease by cardiac catheterization, January 2022. -RCA and LCx stents were patent at that time. -cardiac catheterization today. (3) Hyperlipidemia: -continue atorvastatin. (4) Aortic stenosis: -only aortic valve sclerosis without stenosis at time of echocardiogram, May 2023. History of Present Illness Attending Physician: Jordan Nichole MD History of Present Illness Mr. Valiente is an 83-year-old male admitted yesterday with unstable angina pectoris. This consultation was ordered to assist in his cardiac management. Of note, the patient is well known to me from the outpatient setting. The patient was in his usual state of health until approximately 2 weeks prior to presentation. He began to note increasing episodes of angina pectoris with physical activity. Yesterday, following latter-day, the patient had the onset of an anginal episode while at rest. He explained that this was very severe and realized that he had to be seen in the emergency room. The patient does admit to noncompliance with his medications over the last 2 weeks. His cardiac history began in April 2018 when he presented with an inferior myocardial infarction. He had a TJ placed in the RCA and a staged LCx TJ. In December 2021 he presented as a preoperative evaluation. He gave a history of classic exertional angina pectoris which occurred following a nondiagnostic stress echocardiogram. We discussed need for cardiac catheterization before he could have his inguinal hernia repaired. He underwent a cardiac catheterization with Dr. Schmid in January 2022. This revealed a 60-70% LM, 80% right PLB, 90% left PLB, 60% mid RCA, and patent stents within the mid RCA and mid LCx. It was recommended that he proceed with bypass surgery, however, the patient was not interested in that strategy. He opted for medical management, however, quickly discontinue those medications. He was only willing to take [id number] medications. He was rehospitalized in May [address] elevation LA. another cardiac catheterization was recommended, however, patient refused. However, he was willing to start guideline directed medications. The patient is now willing to undergo coronary artery bypass surgery. We have discussed need to proceed with a cardiac catheterization today. Allergies Allergy/AdvReac Type Severity Reaction Status Date / Time No Known Allergies Allergy Verified 12/15/23 01:32 Home Medications Medication Instructions Recorded Confirmed Type atorvastatin 40 mg tablet 40 mg PO QAM #30 tabs 07/04/23 12/15/23 Rx carvedilol 3.125 mg tablet 3.125 mg PO BIDM #60 tabs 07/04/23 12/15/23 Rx clopidogrel 75 mg tablet 75 mg PO QAM #30 tabs 07/04/23 12/15/23 Rx isosorbide mononitrate 30 mg 30 mg PO QAM #30 tabs 07/04/23 12/15/23 Rx tablet,extended release 24 hr Patient History Medical History Chest pain Non-ST elevation LA (NSTEMI) Shingles Chest pain Past myocardial infarction Surgical History History of mandibular surgery History of tonsillectomy History of intravascular stent placement Family History Sister Breast cancer Cancer Mother Diabetes Denies family history of Ovarian cancer Prostate cancer Myocardial infarction Colorectal cancer Social History Smoking Status: Never smoker Second Hand Exposure: No; Do You Dip or Chew Tobacco: No; Hx Alcohol Use: No Hx Substance Use: No Preferred Language: Argentine Communication Ability: Effective Larry Operator Required: No Beliefs That Will Affect Care: None Current Living Situation: Alone Current Living Situation Comment: pts recently passed Feels Safe at Home: Yes Assistive Devices: None Physical Exam Physical Exam: In general this is a well-developed well-nourished white male in no acute distress. HEENT exam is negative. Neck is supple with full carotid upstrokes. There are no carotid bruits. No jugular venous distention. There is no thyromegaly. Cardiovascular exam reveals a regular rhythm with a normal S1 and S2. A 2/6 basal systolic ejection murmur is noted. Lungs are clear without rales, rhonchi or wheezes. Abdomen is soft and nontender without bruits. Extremities reveal intact radial artery and posterior tibial pulses bilaterally. There is no peripheral edema. Results & Data Vital Signs (Past 12 Hours) Vital Signs Temp Pulse Pulse Resp BP BP Pulse Ox 12/15/23 08:11 36.4 C L 53 L 18 167/90 H 95 12/15/23 04:00 12/15/23 03:51 36.4 C L 20 161/88 H 97 12/15/23 03:00 59 L 15 133/82 96 12/15/23 02:25 72 12/15/23 01:39 60 18 163/77 H 97 12/15/23 00:00 68 23 97 12/14/23 23:58 67 17 119/68 95 12/14/23 23:49 70 12/14/23 23:49 36.7 C 68 16 119/68 96 O2 Del Method 12/15/23 08:11 Room Air 12/15/23 04:00 Room Air 12/15/23 03:51 Room Air 12/15/23 03:00 Room Air 12/15/23 02:25 12/15/23 01:39 Room Air 12/15/23 00:00 12/14/23 23:58 Room Air 12/14/23 23:49 12/14/23 23:49 Room Air Laboratory Results Initial high sensitivity troponin is 52. Diagnostic Findings EKG notes sinus rhythm and an inferolateral ST abnormality. PG Care Time/CCT Total # of Minutes Spent Total Time Spent with Patient: Total time spent is greater than 50% in coordination of care (as documented) at patient's floor/unit and/or counseling patient: Coding Level of Care Code 18920 IN/OBS CONSULT LVL 5,80M Diagnoses Unstable angina pectoris due to coronary arteriosclerosis I25.110 Coronary artery disease I25.10 Pure hypercholesterolemia E78.00 Hyperlipidemia type: pure hypercholesterolemia Aortic stenosis I35.0 (3) Hyperlipidemia Hyperlipidemia type: pure hypercholesterolemia Qualified Code(s): E78.00 - Pure hypercholesterolemia, unspecified
--- NOTE | 2023-12-15 11:34 | Pre Anesthesia Assessment ---
Date of Service December 15, 2023 Pre Sedation Assessment Vital Signs Temp Pulse Pulse Resp BP BP Pulse Ox 12/15/23 08:11 36.4 C L 53 L 18 167/90 H 95 12/15/23 04:00 12/15/23 03:51 36.4 C L 20 161/88 H 97 12/15/23 03:00 59 L 15 133/82 96 12/15/23 02:25 72 12/15/23 01:39 60 18 163/77 H 97 12/15/23 00:00 68 23 97 12/14/23 23:58 67 17 119/68 95 12/14/23 23:49 70 12/14/23 23:49 36.7 C 68 16 119/68 96 O2 Del Method 12/15/23 08:11 Room Air 12/15/23 04:00 Room Air 12/15/23 03:51 Room Air 12/15/23 03:00 Room Air 12/15/23 02:25 12/15/23 01:39 Room Air 12/15/23 00:00 12/14/23 23:58 Room Air 12/14/23 23:49 12/14/23 23:49 Room Air Cardiovascular Additional Comments: grade 2/6 SM Respiratory normal respiratory effort, lungs clear to auscultation Pre-Sedation Airway Assessment Smoking Status: Never smoker Hx Sleep Apnea: No Hx Difficult Intubation: No Short, Thick Neck: No Thyromental Distance: > or= 3.5 Finger Breadths Oral Cavity: + Dentures Mallampati Class: III ASA: ASA3 NPO Status Date of Last Intake of Fluids: 12/14/23 Time of Last Intake of Fluids: 21:00 Date of Last Intake of Solid Food: 12/14/23 Time of Last Intake of Solid Foods: 21:00 Notes The planned sedation has been discussed with the patient. Informed Consent was obtained. I have identified the patient, determined the appropriateness of sedation and have assessed the patient immediately prior to the procedure. All medicine(s) and interventions are by my order.
[2023-12-15] MEDS: NITROGLYCERIN/D5W 100MCG/ML 20ML SYR ONE (11:50)
[2023-12-15] MEDS: niCARdipine HCL INJ 2.5 MG/ML 10 ML AMP ONE (11:50)
[2023-12-15] MEDS: MIDAZOLAM HCL 1 MG/ML 2ML VIAL ONE (12:01)
[2023-12-15] MEDS: fentaNYL citrate PF 100 MCG/2 ML VIAL ONE (12:01)
[2023-12-15] MEDS: OPTIRAY 350 ONE (12:02)
--- NOTE | 2023-12-15 12:02 | Hospitalist Progress Note ---
Date of Service December 15, 2023 Assessment & Plan (1) Acute non-ST elevation myocardial infarction (NSTEMI): Plan: Fortunately, no recurrent chest pain. He was told in the past that he requires coronary artery bypass grafting. He is now willing to proceed. He will undergo left heart catheterization today, December 14. Appreciate cardiology consultation and recommendations. He is currently on a heparin drip along with his other medications. Troponin has increased to 518. Cardiac echo report is pending. (2) Abnormal EKG: Plan: Present on admission. EKG repeated today, December 14, looks better with less lateral ST segment changes evident. (3) Aortic stenosis: Plan: Seen on cardiac echo. No intervention necessary at this time (4) Hypertension: Plan: Stable. Continue current medical (5) Coronary artery disease: Plan: Known triple-vessel coronary artery disease. Continue current medical management (6) Hyperlipidemia: Plan: Stable. Continue current statin therapy Plan He will undergo left heart catheterization today, December 14. Anticipate transfer for coronary artery Bypass grafting. Appreciate cardiology consultation and recommendations. Continue telemetry and current medical management. Admission and Anticipated Discharge Date Admission Date: December 15, 2023 Subjective Alert and oriented. No distress. He denies any chest pain at the time of my examination. is at the bedside. We discussed proper use of sublingual nitroglycerin should any chest pain recur. Cardiology consultation noted. He will undergo left heart catheterization today, December 14. He was told in the past that he requires CABG due to the severity of his underlying coronary artery disease. He was hesitant to proceed in that direction in the past but now states he is willing. Troponin has increased to 518 consistent with non-ST elevation IA. Cardiac echo report is pending Review of Systems 2 Review of Systems: Constitutional-no fever or chills ENT-no blurred vision, no double vision, no epistaxis, no sore throat Respiratory-no cough, no wheezing, no shortness of breath Cardiac-no palpitations, no syncope. Chest pain present on admission has resolved and has not recurred GI-no nausea, vomiting, diarrhea, melena, hematochezia -no urinary retention, no urinary incontinence, no dysuria, no hematuria Musculoskeletal-no joint pain, no muscle tenderness Skin-no bruising, no rashes, no pruritus Neuro-no isolated weakness, no paresthesia, no weakness Psych-no depression, no anxiety Physical Exam 2 Physical Exam: General-alert and oriented x3, no fever, no chills HEENT-head atraumatic and normocephalic, pupils equal and reactive to light, extraocular muscles intact Neck-no lymphadenopathy or thyromegaly, trachea midline Chest-clear to auscultation. No rales, wheezing or rhonchi Cardiac-regular rate and rhythm, normal S1 and S2 Abdomen-normal bowel sounds, no hepatosplenomegaly Extremities-no cyanosis, clubbing, or edema Neuro-cranial nerves II through XII intact, motor and sensory function within normal limits, strength symmetrical, no focal deficits Psych-normal affect, normal mood Results & Data Results & Data Vital Signs (Past 12 Hours) Vital Signs Temp Pulse Pulse Resp BP BP Pulse Ox 12/15/23 08:11 36.4 C L 53 L 18 167/90 H 95 12/15/23 04:00 12/15/23 03:51 36.4 C L 20 161/88 H 97 12/15/23 03:00 59 L 15 133/82 96 12/15/23 02:25 72 12/15/23 01:39 60 18 163/77 H 97 12/15/23 00:00 68 23 97 O2 Del Method 12/15/23 08:11 Room Air 12/15/23 04:00 Room Air 12/15/23 03:51 Room Air 12/15/23 03:00 Room Air 12/15/23 02:25 12/15/23 01:39 Room Air 12/15/23 00:00 Laboratory Results 12/14/23 23:50 12/15/23 09:04 PG Care Time/CCT Total # of Minutes Spent Total Time Spent with Patient: Total time spent is greater than 50% in coordination of care (as documented) at patient's floor/unit and/or counseling patient: Coding Level of Care Code 25192 SUB INP/OBS CARE 3/50MIN Diagnoses Acute non-ST elevation myocardial infarction (NSTEMI) I21.4 Abnormal EKG R94.31 Aortic stenosis I35.0 Primary hypertension I10 Hypertension type: primary hypertension Coronary artery disease I25.10 Pure hypercholesterolemia E78.00 Hyperlipidemia type: pure hypercholesterolemia (4) Hypertension Hypertension type: primary hypertension Qualified Code(s): I10 - Essential (primary) hypertension (6) Hyperlipidemia Hyperlipidemia type: pure hypercholesterolemia Qualified Code(s): E78.00 - Pure hypercholesterolemia, unspecified
[2023-12-15] MEDS: HEPARIN (PORCINE) 1000 UNIT/ML 10 ML (CATH LAB USE ONLY) ONE (12:03)
--- NOTE | 2023-12-15 12:09 | Post Anesthesia Assessment ---
Date of Service December 15, 2023 Post Sedation Assessment Vital Signs Temp Pulse Pulse Resp BP BP Pulse Ox 12/15/23 08:11 36.4 C L 53 L 18 167/90 H 95 12/15/23 04:00 12/15/23 03:51 36.4 C L 20 161/88 H 97 12/15/23 03:00 59 L 15 133/82 96 12/15/23 02:25 72 12/15/23 01:39 60 18 163/77 H 97 12/15/23 00:00 68 23 97 12/14/23 23:58 67 17 119/68 95 12/14/23 23:49 70 12/14/23 23:49 36.7 C 68 16 119/68 96 O2 Del Method 12/15/23 08:11 Room Air 12/15/23 04:00 Room Air 12/15/23 03:51 Room Air 12/15/23 03:00 Room Air 12/15/23 02:25 12/15/23 01:39 Room Air 12/15/23 00:00 12/14/23 23:58 Room Air 12/14/23 23:49 12/14/23 23:49 Room Air Recovery Score Activity: Moves 4 extremities Respiration: Deep Breath/Cough Circulation: +/-20% PreAnes Value Consciousness: Fully Awake Oxygen Saturation: > 92% On Room Air Discharge Sedation Level of Care: Fast Track Phase II Post Sedation Plan On clinical assessment, the patient appears to have tolerated the sedation without complications. Patient is recovering as anticipated. Patient will continue to be monitored by nursing and may be discharged when sedation discharge criteria are met per below protocol. Upon Completions of procedure up to 15 minutes continue every 5 minute vital signs and the P.A.R. score; then discharge to a Phase I or Fast Track to Phase II per the following guidelines: * Discharge Patient to appropriate Phase II area if PAR is 8 or greater or return to pre- procedure baseline. The post - procedure orders will be as directed. * If PAR score is less than 8 or not return to pre-procedure baseline then patient will follow Phase I monitoring till PAR is reached for Phase II. The Phase I may be done in procedure room or may call to secure a Phase I area. * If naloxone or flumazenil are used for reversal, hold in Phase I for continued monitoring from when last reversal dose was given for a minimum of 60 minutes or longer pending the nurse and/or physician discretion of patient condition before discharge to Phase II. Please call the Sedation Physician to re-evaluate and complete post-note for discharge to Phase II area. Do NOT discharge from procedure sedation or Phase 1 until post- sedation evaluation note is complete by procedure /sedation MD Sedation Discharge Instructions to be given to the patient at discharge to home. [facility] Procedure Codes (Charges) Indication for Procedure Indication for procedure: NSTEMI KNOWN SEVERE MV CAD Sedation/Anesthesia Procedure 1: Sedation/Anesthesia: 50092 Mod Sedation by the same physician;Init15 Min Child Age 5 & Up (Initial 15 minutes, start 1148, End 1202) Total Sedation Time (minutes): 14
--- NOTE | 2023-12-15 12:59 | Electrocardiogram Report ---
Test Reason : Blood Pressure : / mmHG Vent. Rate : 067 BPM Atrial Rate : 067 BPM P-R Int : 146 ms QRS Dur : 088 ms QT Int : 430 ms P-R-T Axes : 080 065 -35 degrees QTc Int : 454 ms Normal sinus rhythm Possible Inferior infarct , age undetermined Abnormal ECG When compared with ECG of 15-JUN-2023 05:28, Premature ventricular complexes are no longer Present Borderline criteria for Inferior infarct are now Present ST now depressed in Inferior leads T wave inversion now evident in Inferior leads T wave inversion now evident in Lateral leads Confirmed by Dane Regan ([id number]) on 12/15/2023 12:58:55 PM Referred By: REFERRED SELF Confirmed By:Dane Regan
[2023-12-15] MEDS: HEPARIN SOD (PORCINE) 1000 UNIT/ML IV ONE ×2 (13:15→19:59)
--- NOTE | 2023-12-15 13:17 | Electrocardiogram Report ---
Test Reason : Blood Pressure : / mmHG Vent. Rate : 060 BPM Atrial Rate : 060 BPM P-R Int : 146 ms QRS Dur : 084 ms QT Int : 460 ms P-R-T Axes : 080 031 -29 degrees QTc Int : 460 ms Sinus rhythm with occasional Premature ventricular complexes Inferior infarct (cited on or before 02-JAN-2023) Abnormal ECG When compared with ECG of 14-DEC-2023 23:49, (unconfirmed) Premature ventricular complexes are now Present Nonspecific T wave abnormality has replaced inverted T waves in Lateral leads Confirmed by Dane Regan ([id number]) on 12/15/2023 1:16:56 PM Referred By: REFERRED SELF Confirmed By:Dane Regan
--- NOTE | 2023-12-15 13:36 | Cardiac Catheterization ---
[facility] Data: [employer] Cardiac Status Clinical evaluation leading to the procedure CAD Presenation: Non STEMI Anginal Classification: CCS III Heart Failure: No Cardiogenic Shock within 24 Hours: No Cardiac Arrest within 24 Hours: No Imaging Studies Past 6 Months: No Stress Studies Past 6 Months: No Coronary Anatomy Dominant: Co-Dominant Left Main (% Stenosis): Proximal (70%) LAD (% Stenosis): Proximal (50%) and Distal (50%) D1 (% Stenosis): Ostial (95%) D2 (% Stenosis): Proximal (95%) Circumflex (% Stenosis): Proximal (50 to 70%, stent patent) and Distal (99%) OM1 (% Stenosis): Ostial (95-99 %) OM2 (% Stenosis): Normal L PL1 (% Stenosis): Ostial (95%) L PDA (% Stenosis): Normal RCA (% Stenosis): Proximal (Stent patent), Mid (50% after stent, 99%) and Distal (100%) R PDA (% Stenosis): Ostial (100%) R PL1 (% Stenosis): Normal Ramus (% Stenosis): Normal Diagnostic Physicians Name: Loy Bey MD, PhD Closure Device Percutaneous Entry Location: Radial Closure Device: Radial Band Recommendations: CABG Cardiac Cath Procedure Full Procedure Date December 15, 2023 Pre-Procedure Diagnosis Pre-Procedure Diagnosis: Non STEMI AUC Score AUC Score: 7 Post-Procedure Diagnosis Post-Procedure Diagnosis: Severe CAD Procedure(s) Performed Procedure(s) Performed: Coronary Angiography Ceo Loy Bey MD, PhD Estimated Blood Loss Estimated Blood Loss: 5 cc Medication(s) Medication(s): Fentanyl, Lidocaine 1%, Nicardipine, Nitroglycerin and Versed Summary of Findings Brief description: Patient was brought to the cardiac catheterization suite where he was shaved and prepped in a sterile fashion. Sedated using IV Versed and fentanyl. Soft tissues of the right wrist were anesthetized using 2 mL of 1% Xylocaine. The right radial artery was accessed with a modified Seldinger technique and a 6 Somali radial artery glide sheath was placed. Patient had come to the room on heparin. He was provided antispasmodics including nicardipine and nitroglycerin. All catheters were advanced and exchanged over a 0.035 J-tip wire. Right coronary angiography in orthogonal views with a 5 Somali Maribel 4 diagnostic catheter. Left coronary angiography in orthogonal views with a 5 Somali Maribel 4 diagnostic catheter. Diagnostic catheters were removed. Radial artery sheath was removed. Hemostasis was obtained using the TR band. Patient remained hemodynamically stable and asymptomatic. He was returned to the recovery area. This ended the case. Coronary angiography findings: LMT-this is medium in caliber with ostial to proximal stenosis of at least 70%. The remainder of the vessel has moderate disease. There was pressure dampening on engagement with a 5 Somali catheter. This vessel was previously evaluated by IVUS and at that time the MLA (CSA) was 3.2 mm. Angiographically it appears similar or worse than prior. LAD-large caliber and transapical. Proximal segment has a long eccentric 50% stenosis. The mid vessel has diffuse mild less than 30% stenosis and then distally there is an focal lesion of 50%. LAD provides a large septal, a medium caliber branching first diagonal with proximal 95% stenosis, and a medium caliber second diagonal with a proximal long eccentric up to 95% stenosis. MGd-mubmd-sukpyzp and possibly codominant vessel. Proximally there is a focal 50 to 70% calcified stenosis. The vessel then has an AV groove stent which appears without disease. It extends into the midportion of the vessel and after the stent there is a focal 99% calcified stenosis. First OM has ostial 99% stenosis. Second OM is small. The distal AV groove vessel then provides a large caliber posterolateral which has ostial 95% stenosis and terminates as a small and short PDA. Ramus-this is small caliber without significant disease. RCA-this is large caliber and codominant. Proximally there is a previously placed stent which is widely patent. After the stent the mid segment has 50% stenosis followed by 99% stenosis. Then, the early distal vessel is 100% occluded. There is a large and long PDA which is 99 to 100% occluded at the ostium and a medium caliber posterolateral branch. There is left to right collateralization demonstrating these vessels and this retrograde flow goes up to the early distal RCA which is occluded. Summary: 1. Severe multivessel coronary disease with at least moderate calcification. 2. Previously placed stents appear patent. 3. Current study was compared directly with previous study from January 2022. In general, the current study shows worsening of coronary disease compared to prior at multiple levels. 4. Recommend "heart team" evaluation at tertiary center regarding coronary artery bypass grafting versus unprotected left main and multivessel stenting. Hemodynamics Rest Ao:: 111/72 mmHg Final Ao: 122/68 mmHg LV: Not performed Recommendations Recommendations: CABG Radiation Exposure (mGy) 562 mGy, fluoroscopy time 2.47 minutes Contrast (mls) 60 Anesthesia 1 mg Versed, 25 mcg fentanyl IV. Start 1148, end 1202 Procedural Complication(s) None Disposition [employer] Holding/Recovery I attest to the content of the Intraoperative Record and any orders documented therein. Any exceptions are noted below. [facility] Card Cath Procedure Codes Cardiac Catheterization Procedure 1: Cardiovascular Cath Procedures: 37795 Coronaries Moderate Sedation Procedure 1: Sedation/Anesthesia: 00766 Mod Sedation by the same physician;Init15 Min Child Age 5 & Up (Initial 15 min, start time 1148, end time 1202) PG Care Time/CCT Total # of Minutes Spent Total Time Spent with Patient: Total time spent is greater than 50% in coordination of care (as documented) at patient's floor/unit and/or counseling patient:
--- NOTE | 2023-12-15 19:05 | XCELERA ---
[id number]
[2023-12-15 19:32] LABS: ANTI-Xa, UFH(UnfractionatedHep 0.19 IU/ml (0.3-0.7)
[2023-12-16 02:46] LABS: Albumin Level 3.4 gm/dl (3.4-5.0); BUN Creatinine Ratio 28.8 (10-20); Calcium 8.5 mg/dl (8.6-10.3); Creatinine Clr Calc Pharmacy 69.4 ml/min; Est GFR (African American) 100.8 ml/min; Magnesium 1.8 mg/dl (1.7-2.4); Phosphorus 3.4 mg/dl (2.5-4.9); Potassium 3.9 mmol/L (3.5-5.1)
[2023-12-16 03:15] LABS: ANTI-Xa, UFH(UnfractionatedHep 0.38 IU/ml (0.3-0.7)
[2023-12-16 07:22] LABS: Troponin I High Sensitivity 350.6 pg/ml (0-20)
[2023-12-16] MEDS: ISOSORBIDE MONO EXTENDED REL 60 MG TABCR PO SCH (08:30)
[2023-12-16] MEDS: NITROGLYCERIN SL 0.4 MG/TAB TAB SL PRN (11:53)
--- NOTE | 2023-12-16 12:59 | Discharge Summary ---
Date of Service December 16, 2023 Admission HPI Per Admitting Provider The patient is a 83-year-old male with a past medical history including CAD, valvular heart disease, aortic stenosis, hypertension, urinary incontinence, BPH with LUTS, and hyperlipidemia.. He reports that he has been somewhat lax about taking his medications on a regular basis over the past few weeks, due to traveling more frequently. He presents emergency department with chest pain as noted above, and resolution with 4 aspirin en route to the hospital. He reports that in May of last year, he went to [place] to have a left inguinal hernia repair and prostate surgery, because he was not going to be authorized to undergo surgery by Dr. Bello due to significant triple-vessel coronary disease, and Dr. Bello wanted him to have further heart assessments. He reports that he tolerated the procedure well, and has had no further issues with urinary dysfunction. Principal Diagnosis Non-ST elevation [place], severe ischemic heart disease Discharge Exam General-alert and oriented x3, no fever, no chills HEENT-head atraumatic and normocephalic, pupils equal and reactive to light, extraocular muscles intact Neck-no lymphadenopathy or thyromegaly, trachea midline Chest-clear to auscultation. No rales, wheezing or rhonchi Cardiac-regular rate and rhythm, normal S1 and S2 Abdomen-normal bowel sounds, no hepatosplenomegaly Extremities-no cyanosis, clubbing, or edema Neuro-cranial nerves II through XII intact, motor and sensory function within normal limits, strength symmetrical, no focal deficits Psych-normal affect, normal mood Discharge Data Allergies Allergy/AdvReac Type Severity Reaction Status Date / Time No Known Allergies Allergy Verified 12/15/23 01:32 Consultations 12/15/23 02:53 ED Decision to Admit Stat 12/15/23 03:55 Consult Cardiology Routine 12/16/23 12:52 Burn CD for patient Stat Procedures Performed Operation Date: 12/15/23 11:00 Actual Procedures p Cineradiography w/Routine Exam - Loy Bey MD, PhD p Cath, Coronaries ONLY (no LV) - Loy Bey MD, PhD Ordered Studies 12/15/23 10:02 CL Cath Imgs for PACS use only Urgent Hospital Course (1) Acute non-ST elevation myocardial infarction (NSTEMI): Fortunately, no recurrent chest pain. He was told in the past that he requires coronary artery bypass grafting. He is now willing to proceed. Left heart catheterization was completed on December 14. Unfortunately, he has a 70% left main trunk lesion and multiple 95% lesions in other arteries. The stents in the circumflex and right coronary however remain patent. Cardiology has determined that he needs coronary artery bypass grafting and arrangements have been made for transfer to [facility] under the care of Dr. Mcdermott, cardiology, until bypass surgery can be completed. Cardiac echo reveals preserved left ventricular ejection fraction with no regional wall motion abnormalities. He is currently pain-free with stable vital signs. (2) Abnormal EKG: Present on admission. EKG repeated on December 14 looked better with less lateral ST segment changes evident. (3) Aortic stenosis: Seen on cardiac echo. No intervention necessary at this time (4) Hypertension: Stable. Continue current medical (5) Coronary artery disease: Known triple-vessel coronary artery disease. Continue current medical management. He is now off the heparin drip (6) Hyperlipidemia: Stable. Continue current statin therapy Plan Transfer to [facility] for coronary artery bypass grafting. Total Time Total Time Spent Total Time Spent (In Minutes): 45 minutes Discharge Plan Discharge Items Patient Disposition: Transfer Acute Care Hospital Reason For Visit: NSTEMI Discharge Diagnosis: Non-ST elevation [place], severe ischemic heart disease Activity: As commented below Activity Comment: Bedrest for now Non-emergency contact: Primary Care Provider and [employer] Fireman Call non-emergency contact if: your symptoms worsen Follow-up/Referrals: Ayaka Bartlett CRNP [Primary Care Provider] - Diet: Regular and Heart Healthy Add Attending Provider Instructions: See primary care provider and local chief nursing officer as soon as possible after discharge from [facility]. Pending Studies at Discharge: No Stand-Alone Forms: My [facility] Skilled Items Patient informed of condition?: Yes DNR: No Discharge Level of Care: Other Communicable Disease: No Discharge Prognosis: Stable Lines: Peripheral IV Urinary Catheter: No Medications and DC Order Prescriptions: New aspirin 81 mg Tablet,Delayed Release (Dr/Ec) 81 mg PO QAM Qty: 0 0RF nitroglycerin [Nitrostat] 0.4 mg Tablet, Sublingual 0.4 mg sublingual Q5M PRNQty: 0 0RF Continued atorvastatin 40 mg tablet 40 mg PO QAM Qty: 30 11RF Rx Instructions: "ATORLIP" 40 MG carvedilol 3.125 mg tablet 3.125 mg PO BIDM Qty: 60 11RF Rx Instructions: "DILATREND" 6.35 MG-TAKES 1/2 TAB. clopidogrel 75 mg tablet 75 mg PO QAM Qty: 30 11RF Rx Instructions: "DEVIPLAT" 75 MG isosorbide mononitrate 30 mg tablet extended release 24 hr 30 mg PO QAM Qty: 30 11RF Rx Instructions: "ELANTAN" 20 MG--TAKES 30 MG Discharge Orders: Discharge Order (Routine); Ordered 12/16/23 Ordered By: Jordan Nichole Admission Data Admit Date/Time: 12/15/23 03:11 Attending Provider: Jordan Nichole Admit Provider: Ross Bravo Primary Care Provider: Ayaka Bartlett Other Providers: Ross Bravo; Reji Bello Coding Level of Care Code 97882 INP/OBS DISCH >30 MIN Diagnoses Acute non-ST elevation myocardial infarction (NSTEMI) I21.4 Abnormal EKG R94.31 Aortic stenosis I35.0 Primary hypertension I10 Hypertension type: primary hypertension Coronary artery disease I25.10 Pure hypercholesterolemia E78.00 Hyperlipidemia type: pure hypercholesterolemia
[2023-12-16 14:43] LABS: Influenza A virus by PCR Negative (Neg); Influenza B virus by PCR Negative (Neg); RSV by PCR Negative (Neg); SARS CoV2 RNA(COVID-19) Ceph NEGATIVE (Negative)
--- NOTE | 2023-12-16 15:50 | Electrocardiogram Report ---
Test Reason : Blood Pressure : / mmHG Vent. Rate : 059 BPM Atrial Rate : 059 BPM P-R Int : 144 ms QRS Dur : 090 ms QT Int : 456 ms P-R-T Axes : 065 012 -43 degrees QTc Int : 451 ms Sinus bradycardia with occasional Premature ventricular complexes Inferior infarct (cited on or before 02-JAN-2023) Abnormal ECG When compared with ECG of 15-DEC-2023 10:12, No significant change was found Confirmed by Dane Regan ([id number]) on 12/16/2023 3:50:20 PM Referred By: REFERRED SELF Confirmed By:Dane Regan
--- NOTE | 2023-12-16 16:16 | Electrocardiogram Report ---
Test Reason : Blood Pressure : / mmHG Vent. Rate : 060 BPM Atrial Rate : 060 BPM P-R Int : 142 ms QRS Dur : 092 ms QT Int : 440 ms P-R-T Axes : -26 -07 098 degrees QTc Int : 440 ms Sinus rhythm with frequent Premature ventricular complexes T wave abnormality, consider lateral ischemia Abnormal ECG When compared with ECG of 16-DEC-2023 05:21, (unconfirmed) Criteria for Inferior infarct are no longer Present ST no longer depressed in Inferior leads T wave inversion no longer evident in Inferior leads Confirmed by Dane Regan ([id number]) on 12/16/2023 4:15:44 PM Referred By: REFERRED SELF Confirmed By:Dane Regan
== END 2023-12-16 15:22 | disposition short-term general hospital (02) | DRG 282 ==
LOC: ED 23:43 → SUATTDRO 12-15 03:11 → 4W 12-15 03:11
PROC: CLB.CCO (2023-12-15 11:00)